=== PATIENT | female | born 1950 | race Caucasian/White ===

== ENCOUNTER → 2018-06-19 15:45 | Outpatient (CLI) | payer MEDICARE, OTHER, SELFPAY ==
--- NOTE | 2018-06-19 15:49 | DI.RAD.S_ITS ---
PROCEDURE: XR CHEST 2V INDICATIONS: COUGH TECHNIQUE: 2 views of the chest were acquired. COMPARISON: [facility], , CHEST 2 VIEW, 05/14/2012, 10:11. FINDINGS: Surgical changes and devices: None. Lungs and pleura: Mildly increased focal vascular marking and bilateral hilar region is seen. No focal infiltrate. No pleural effusions or pneumothorax. Mediastinum: Mediastinal contours are normal. Heart size is normal. Bones and chest wall: No suspicious bony abnormalities. Soft tissues appear unremarkable. IMPRESSION: Suggestion of reactive airway disease such as bronchitis or asthma. No focal infiltrate. Dictated by: Teo Mead M.D. on 06/19/2018 at 16:03 Approved by: Teo Mead M.D. on 06/19/2018 at 16:04
== END ==
PROVIDERS: PCP Physician Assistant; Visit Provider Physician Assistant
DX: R05 Cough (principal)
CPT/HCPCS: 71046

== ENCOUNTER → 2018-07-10 10:56 | Outpatient (CLI) | payer MEDICARE, OTHER, SELFPAY ==
--- NOTE | 2018-07-10 | DI.CT.S_ITS ---
PROCEDURE: CT ABDOMEN PELVIS W CON INDICATIONS: EPIGASTRIC PAIN TECHNIQUE: After the administration of oral and intravenous contrast, 5 mm thick sections acquired from the diaphragms to the symphysis. 5 mm thick coronal and sagittal reformats were performed. For radiation dose reduction, the following was used: automated exposure control, adjustment of mA and/or kV according to patient size. COMPARISON: [facility], CT, ABDOMEN/PELVIS WITH CONTRAST, 12/20/2016, 10:39. [facility], CT, ABDOMEN/PELVIS WITH CONTRAST, 04/02/2010, 14:23. FINDINGS: Image quality: Excellent. ABDOMEN: Lung bases: Lung bases are clear. Heart size is normal. Solid organs: Liver is normal in size and enhancement. Gallbladder appears normal. Biliary system is non-dilated. Pancreas enhances normally. Spleen is normal in size and enhancement. No adrenal nodules. Kidneys are normal in size and enhancement, without hydronephrosis. Peritoneum and bowel: Stomach, small bowel, and colon loops are normal in caliber and wall thickness. No free fluid or air. Moderate colonic obstipation greater on the right than left. Nodes and vessels: No retroperitoneal or mesenteric adenopathy. Aorta and inferior vena cava are normal in caliber. Miscellaneous: No ventral hernias. PELVIS: Genitourinary: Bladder wall thickness is normal. Miscellaneous: No inguinal hernias or adenopathy. Bones: No suspicious bony lesions. No vertebral body compression fractures. IMPRESSION: No sign of infection or neoplasm. Moderate colonic obstipation greater on the right than the left. Dictated by: Art Clement M.D. on 07/10/2018 at 14:03 Approved by: Art Clement M.D. on 07/10/2018 at 14:04
[2018-07-10 12:02] LABS: Add Manual Diff / Slide Review NO; Basophils Absolute Auto 0 /uL (0-100); Basophils Percent Auto 0.9 % (0-2); Eosinophils Absolute Auto 200 /uL (0-450); Eosinophils Percent Auto 5.9 % (2-4); Hematocrit 40.8 % (36-46); Hemoglobin 13.9 g/dL (12.0-16.0); Lymphocytes Absolute Auto 1500 /uL (1100-4500); Lymphocytes Percent Auto 39.9 % (25-40); Mean Corpuscular Hemoglobin 31.1 PG (26-34); Mean Corpuscular Volume 91.4 fL (80-100); Monocytes Absolute Auto 400 /uL (0-900); Monocytes Percent Auto 9.8 % (3-14); Neutrophils Absolute Auto 1600 /uL (1500-7000); Neutrophils Percent Auto 43.5 % (50-75); Platelet Count 168 X10^3/uL (150-400); Red Blood Cell Count 4.47 X10^6/uL (4.0-5.2); Red Cell Distribution Width 13.7 % (11.6-14.8); White Blood Cell Count 3.7 X10^3/uL (4.5-11.0)
[2018-07-10 12:12] LABS: Alanine Aminotransferase 36 IU/L (9-52); Alkaline Phosphatase 118 U/L (38-126); Aspartate Aminotransferase 27 IU/L (14-36); Bilirubin Total 1.6 mg/dL (0.2-1.3); Blood Urea Nitrogen 18 mg/dL (7-17); Carbon Dioxide 29 mmol/L (22-32); Chloride 101 mmol/L (98-107); Estimated Glomerular Filt Rate 55.1 mL/min (>60); Glucose 96 mg/dL (80-110); HEMOLYSIS < 15 (0-50); Lipase 58 U/L (23-300); Potassium 4.2 mmol/L (3.4-5.1); Sodium 138 mmol/L (137-145)
== END ==
PROVIDERS: PCP Physician Assistant; Visit Provider Internal Medicine
DX: R10.13 Epigastric pain (principal); K59.00 Constipation, unspecified
CPT/HCPCS: 36415; 74177; 80048; 82247; 83690; 84075; 84450; 84460; 85025; Q9967

== ENCOUNTER → 2018-11-18 15:07 | Outpatient (CLI) | payer MEDICARE, OTHER, SELFPAY ==
--- NOTE | 2018-11-18 | DI.MG.S_ITS ---
BILATERAL DIGITAL SCREENING MAMMOGRAM 3D/2D WITH CAD: 11/18/2018 CLINICAL: Routine screening. Comparison is made to exams dated: 04/18/2014 mammogram, 03/05/2012 mammogram, 11/14/2010 mammogram, 07/11/2009 mammogram, and 01/18/2008 mammogram - [facility]. There are scattered fibroglandular elements in both breasts. Current study was also evaluated with a Computer Aided Detection (CAD) system. No significant masses, calcifications, or other findings are seen in either breast. There has been no significant interval change. IMPRESSION: NEGATIVE There is no mammographic evidence of malignancy. A 1 year screening mammogram is recommended. This exam was interpreted at Station ID: [id number]. NOTE: For mammograms, a report in lay terms will be sent to the patient. Approximately 15% of breast malignancies will not be visualized mammographically. In the management of a palpable breast mass, a negative mammogram must not discourage biopsy of a clinically suspicious lesion. Electronically Signed By: Dillon gallardo/fartun:11/18/2018 20:04:36 letter sent: Normal Exam ACR BI-RADS Category 1: Negative [id number]
== END ==
PROVIDERS: PCP Physician Assistant; Visit Provider Internal Medicine
DX: Z12.31 Encounter for screening mammogram for malignant neoplasm of breast (principal); Z13.820 Encounter for screening for osteoporosis; Z78.0 Asymptomatic menopausal state; Z82.62 Family history of osteoporosis; Z87.891 Personal history of nicotine dependence
CPT/HCPCS: 77063; 77067; 77080

== ENCOUNTER → 2018-12-04 15:52 | Outpatient (CLI) | payer MEDICARE, OTHER, SELFPAY ==
--- NOTE | 2018-12-04 | DI.RAD.S_ITS ---
PROCEDURE: XR KNEE RT 3V INDICATIONS: Sacrococcygeal Pain, Acute Pain of Right Knee TECHNIQUE: 3 views of the knee were acquired. COMPARISON: [facility], MR, KNEE WITHOUT CONTRAST, 09/16/2013, 8:46. [facility], CR, KNEE 3V RIGHT, 03/02/2009, 10:37. [facility], CR, KNEE 3V LEFT, 09/08/2013, 16:17. FINDINGS: Bones: No fractures or dislocations. No suspicious bony lesions. There is moderate medial femorotibial joint space narrowing seen, with associated remodeling changes including subchondral sclerosis and osteophyte formation along the jointline. On the sunrise view, there is at least moderate lateral patellofemoral joint space narrowing seen. Osteophyte formation can be seen along the margins of the patella. Soft tissues: There is a mild joint effusion. No suspicious soft tissue calcifications. IMPRESSION: Osteoarthritic degenerative changes are seen, particularly affecting the medial femorotibial joint and the lateral patellofemoral joint. Dictated by: Moreno Mota M.D. on 12/04/2018 at 16:34 Approved by: Moreno Mota M.D. on 12/04/2018 at 16:35
--- NOTE | 2018-12-04 | DI.RAD.S_ITS ---
PROCEDURE: XR SACRUM COCCYX MIN 2V INDICATIONS: Sacrococcygeal Pain, Acute Pain of Right Knee TECHNIQUE: 3 views of the sacrum and coccyx acquired. COMPARISON: [facility], CT, ABDOMEN/PELVIS WITH CONTRAST, 12/20/2016, 10:39. [facility], CR, XR LUMBAR SPINE 2-3V, 12/04/2018, 16:02. [facility], CR, XR KNEE RT 3V, 12/04/2018, 16:02. FINDINGS: Bones: No fractures or dislocations. No suspicious bony lesions. Age-appropriate lower lumbar spine degenerative changes are noted. Soft tissues: Visualized bowel gas pattern is normal. No suspicious soft tissue densities. Pelvic phleboliths are incidentally noted. IMPRESSION: No significant abnormality of the sacrum or coccyx cannot be seen. Dictated by: Moreno Mota M.D. on 12/04/2018 at 16:35 Approved by: Moreno Mota M.D. on 12/04/2018 at 16:35
--- NOTE | 2018-12-04 | DI.RAD.S_ITS ---
PROCEDURE: XR LUMBAR SPINE 2-3V INDICATIONS: Sacrococcygeal Pain, Acute Pain of Right Knee TECHNIQUE: 3 views of the lumbar spine were acquired. COMPARISON: [facility], CR, THORACIC SPINE 3 VIEWS, 07/18/2016, 15:38. [facility], CR, XR SACRUM COCCYX MIN 2V, 12/04/2018, 16:02. [facility], CR, XR KNEE RT 3V, 12/04/2018, 16:02. FINDINGS: Bones: Mild dextroconvex scoliotic curvature is seen. No focal AP alignment abnormality is seen. 5 nonrib-bearing, lumbar type vertebral bodies are seen. No displaced fractures are seen. No suspicious lytic or blastic lesions are seen. Moderate disc space narrowing is seen at L5-S1, with associated irregularity and sclerosis. Focal endplate irregularity is seen at L1-L2. The disc heights otherwise appear well-preserved. Lower lumbar spine facet arthropathy is seen. Soft tissues: Overlying bowel gas pattern is normal. No suspicious soft tissue calcifications. IMPRESSION: Mild dextroconvex scoliotic curvature. Focal L5-S1 degenerative change. Dictated by: Moreno Mota M.D. on 12/04/2018 at 16:31 Approved by: Moreno Mota M.D. on 12/04/2018 at 16:33
== END ==
PROVIDERS: PCP Physician Assistant; Visit Provider Physician Assistant
DX: M53.3 Sacrococcygeal disorders, not elsewhere classified (principal); M47.817 Spondylosis without myelopathy or radiculopathy, lumbosacral region; M41.9 Scoliosis, unspecified; M25.561 Pain in right knee; M25.461 Effusion, right knee
CPT/HCPCS: 72100; 72220; 73562

== ENCOUNTER → 2019-03-22 10:15 | Outpatient (CLI) | payer MEDICARE, OTHER, SELFPAY ==
--- NOTE | 2019-03-22 | DI.RAD.S_ITS ---
PROCEDURE: XR CHEST 2V INDICATIONS: COUGH TECHNIQUE: 2 views of the chest were acquired. COMPARISON: [facility], , XR CHEST 2V, 06/19/2018, 15:56. [facility], , CHEST 2 VIEW, 05/14/2012, 10:11. FINDINGS: Surgical changes and devices: None. Lungs and pleura: Lungs are clear. No pleural effusions or pneumothorax. Mediastinum: Mediastinal contours are normal. Heart size is normal. Bones and chest wall: No suspicious bony abnormalities. Soft tissues appear unremarkable. IMPRESSION: Normal for age, source of current cough symptoms is not seen. Dictated by: Art Clement M.D. on 03/22/2019 at 11:13 Approved by: Art Clement M.D. on 03/22/2019 at 11:13
== END ==
PROVIDERS: PCP Physician Assistant; Visit Provider Physician Assistant
DX: R05 Cough (principal)
CPT/HCPCS: 71046

== ENCOUNTER → 2019-06-18 09:05 | Outpatient (CLI) | payer MEDICARE, OTHER, SELFPAY ==
[2019-06-18 13:21] LABS: Clostridium Difficile Tox PCR Negative for C. diff
== END ==
PROVIDERS: PCP Physician Assistant; Referring Provider Physician Assistant; Visit Provider Physician Assistant
DX: R19.7 Diarrhea, unspecified (principal)
CPT/HCPCS: 87045; 87493; 87899

== ENCOUNTER → 2019-08-04 08:25 | Outpatient (CLI) | payer MEDICARE, OTHER, SELFPAY ==
[2019-08-04 09:02] LABS: Add Manual Diff / Slide Review NO; Basophils Absolute Auto 0 /uL (0-100); Basophils Percent Auto 1.1 % (0-2); Eosinophils Absolute Auto 300 /uL (0-450); Eosinophils Percent Auto 8.7 % (2-4); Hematocrit 39.4 % (36-46); Hemoglobin 13.6 g/dL (12.0-16.0); Lymphocytes Absolute Auto 1500 /uL (1100-4500); Lymphocytes Percent Auto 43.4 % (25-40); Mean Corpuscular HGB Conc 34.6 % (30-36); Mean Corpuscular Volume 92.6 fL (80-100); Monocytes Absolute Auto 300 /uL (0-900); Monocytes Percent Auto 7.7 % (3-14); Neutrophils Absolute Auto 1300 /uL (1500-7000); Neutrophils Percent Auto 39.1 % (50-75); Platelet Count 159 X10^3/uL (150-400); Red Blood Cell Count 4.25 X10^6/uL (4.0-5.2); Red Cell Distribution Width 13.5 % (11.6-14.8); White Blood Cell Count 3.4 X10^3/uL (4.5-11.0)
[2019-08-04 09:16] LABS: Alanine Aminotransferase 36 IU/L (<35); Albumin 4.2 g/dL (3.5-5.0); Albumin Globulin Ratio 1.3 (1.0-2.8); Alkaline Phosphatase 61 U/L (38-126); Aspartate Aminotransferase 42 IU/L (14-36); BUN Creatinine Ratio 23.2 (6-22); Bilirubin Total 1.1 mg/dL (0.2-1.3); Blood Urea Nitrogen 22 mg/dL (7-17); Calcium 9.4 mg/dL (8.4-10.2); Carbon Dioxide 25 mmol/L (22-32); Chloride 108 mmol/L (98-107); Estimated Glomerular Filt Rate 58.3 mL/min (>60); Globulin 3.3 g/dL (1.7-4.1); Glucose 93 mg/dL (80-110); HEMOLYSIS < 15 (0-50); Potassium 4.3 mmol/L (3.4-5.1); Sodium 141 mmol/L (137-145); Total Protein 7.5 g/dL (6.3-8.2)
[2019-08-04 09:18] LABS: C-Reactive Protein Quant < 0.5 mg/dL (<1.0)
[2019-08-04 09:49] LABS: Erythrocyte Sedimentation Rate 6 MM/HR (0-20)
[2019-08-06 13:48] LABS: ANA Screen, IFA Negative (.)
== END ==
PROVIDERS: PCP Physician Assistant; Referring Provider Physician Assistant; Visit Provider Physician Assistant
DX: M19.90 Unspecified osteoarthritis, unspecified site (principal); R76.8 Other specified abnormal immunological findings in serum
CPT/HCPCS: 36415; 80053; 85025; 85651; 86038; 86140; 86430

== ENCOUNTER 2020-03-17 10:29 | Emergency (ER) | payer MEDICARE, OTHER, SELFPAY ==
[2020-03-17] VITALS (10 sets, daily range): BP systolic 143–187; BP diastolic 72–90; PULSE 65–106; RESP 16–45; TEMP 36.8; O2SAT 91–99; BMI 23.5
--- NOTE | 2020-03-17 10:47 | DI.RAD.S_ITS ---
PROCEDURE: XR CHEST 1V INDICATIONS: chest pain TECHNIQUE: One view of the chest was acquired. COMPARISON: [facility], , CHEST 2 VIEW, 05/14/2012, 10:11. [facility], , XR CHEST 2V, 06/19/2018, 15:56. [facility], CR, XR CHEST 2V, 03/22/2019, 10:27. FINDINGS: Surgical changes and devices: None. Lungs and pleura: Lungs are clear. No pleural effusions or pneumothorax. Mediastinum: Mediastinal contours appear normal. Heart size is normal. Bones and chest wall: No suspicious bony lesions. Age-appropriate bony degenerative changes are seen. Mild levoconvex scoliotic curvature is noted. Overlying soft tissues appear unremarkable. IMPRESSION: No acute cardiopulmonary process is seen. Dictated by: Moreno Mota M.D. on 03/17/2020 at 10:12 Approved by: Moreno Mota M.D. on 03/17/2020 at 10:13
--- NOTE | 2020-03-17 10:50 | ED.SOB ---
HPI - SOB/Dyspnea General Chief Complaint: Chest Pain Stated Complaint: high heart rate Time Seen by Provider: 03/17/20 10:30 Source: patient Mode of arrival: Ambulatory Limitations: no limitations History of Present Illness HPI Narrative: 69-year-old female nonsmoker without significant medical history presents at the encouragement of her physician friend for evaluation of 3 days of increasing shortness of breath with minimal exertion. She states that walking up a flight of stairs will drive her heart rate up into the 140s of which point she develops anterior chest discomfort and pressure which seems to resolve along with her heart rate when she rests. She denies any fever or chills. She does feel short of breath with a dry cough, particularly when her heart is racing. She has no headache, blurred vision, runny nose or sore throat. She denies any exposure to persons known to have COVID. MD Complaint: shortness of breath and chest pain Onset (ago): day(s) Severity: moderate Consistency/Duration: intermittent Exacerbating factors: exertion Associated symptoms: chest pain and cough Treatment prior to arrival: none Related Data Home oxygen amount: none Home Medications Medication Instructions Recorded Confirmed alprazolam 1 mg PO BEDTIME PRN 03/17/20 03/17/20 valacyclovir 1,000 mg PO TID 03/17/20 03/17/20 Allergies Allergy/AdvReac Type Severity Reaction Status Date / Time No Known Drug Allergies Allergy Verified 03/17/20 10:53 Review of Systems Constitutional Constitutional: Denies chills, Denies fatigue, Denies fever(s), Denies frequent falls, Denies lethargy and Denies weakness Eyes Eyes: Denies change in vision, Denies eye discharge, Denies irritation and Denies loss of vision ENT Ears, Nose, Mouth, and Throat: Denies change in voice, Denies dizziness, Denies neck pain, Denies sore throat and Denies throat swelling Cardiovascular Cardiovascular: Denies chest pain, Denies irregular heart rhythm, Reports lightheadedness, Reports palpitations, Reports dyspnea, Reports dyspnea on exertion and Denies orthopnea Respiratory Respiratory: Denies cough, Reports dyspnea, Reports dyspnea on exertion and Denies wheezing Gastrointestinal Gastrointestinal: Denies abdominal pain, Denies change in bowel habits, Denies diarrhea, Denies nausea and Denies vomiting Musculoskeletal Musculoskeletal: Denies neck pain and Denies numbness Integumentary/Breasts Skin/Breast: Denies pruritus, Denies erythema, Denies rash and Denies wounds Neurologic Neurologic: Denies behavioral changes, Denies confusion, Denies dizziness, Denies frequent falls, Denies loss of vision, Denies numbness and Denies weakness Psychiatric Psychiatric: Denies anxiety, Denies behavioral changes, Denies confusion, Denies depression, Denies homicidal ideation and Denies suicidal ideation Endocrine Endocrine: Denies fatigue, Denies flushing and Reports palpitations Hematologic/Lymphatic Hematologic/Lymphatic: Denies easy bruising Allergic/Immunologic Allergic/Immunologic: Denies urticaria, Denies throat swelling and Denies wheezing Patient History Social History Smoking Status: Never smoker Smoking Status: Never smoker alcohol intake frequency: 0-2 drinks per day Substance Use Type: does not use Exam Narrative Exam Narrative: GENERAL: [69] year old patient appears stated age. Tall, thin, no obvious distress HEAD: Atraumatic. Normocephalic. EYES: Pupils equal round and reactive. Extraocular motions intact. No scleral icterus. No injection or drainage. ENT: Nose without bleeding, purulent drainage. Throat without erythema, tonsillar hypertrophy or exudate. Airway patent. NECK: Trachea midline. Non tender CARDIOVASCULAR: Regular rate and rhythm without murmurs, gallops, or rubs. RESPIRATORY: Clear to auscultation. Breath sounds equal bilaterally. No wheezes, rales, or rhonchi. GASTROINTESTINAL: Abdomen soft, non-tender, nondistended. EXTREMITIES: No edema or joint tenderness. BACK: Nontender without deformity or crepitance. No flank tenderness. NEURO: AOx3. SKIN: No rash or erythema of visible areas Initial Vital Signs Initial Vital Signs: Vital Signs Temperature 98.2 F 03/17/20 10:48 Pulse Rate 106 H 03/17/20 10:48 Respiratory Rate 24 03/17/20 10:48 Blood Pressure 187/90 H 03/17/20 10:48 Pulse Oximetry 98 03/17/20 10:48 Course Orders Ordered: Discontinued Medications Sodium Chloride (Normal Saline 0.9%) 1,000 mls @ 1,000 mls/hr IV BOLUS ONE Stop: 03/17/20 13:04 Last Infusion: 03/17/20 13:17 Dose: 0 mls/hr Documented by: Admin: 03/17/20 12:06 Dose: 1,000 mls/hr Documented by: NICHELLE Vital Signs Vital signs: Vital Signs - 8 hr 03/17/20 10:48 03/17/20 13:14 03/17/20 13:15 Temperature 98.2 F Pulse Rate 106 H 66 65 Pulse Rate [Orthostatic Lying] Pulse Rate [Orthostatic Sitting] Pulse Rate [Orthostatic Standing] Respiratory Rate 24 16 21 Blood Pressure 187/90 H 147/72 H Blood Pressure [Orthostatic Lying] Blood Pressure [Orthostatic Sitting] Blood Pressure [Orthostatic Standing] Pulse Oximetry 98 98 99 03/17/20 13:27 03/17/20 13:28 03/17/20 13:30 Temperature Pulse Rate 73 83 89 Pulse Rate [Orthostatic Lying] Pulse Rate [Orthostatic Sitting] Pulse Rate [Orthostatic Standing] Respiratory Rate 24 21 45 H Blood Pressure 147/73 H 148/81 H Blood Pressure [Orthostatic Lying] Blood Pressure [Orthostatic Sitting] Blood Pressure [Orthostatic Standing] Pulse Oximetry 97 98 91 03/17/20 13:31 03/17/20 13:45 03/17/20 14:00 Temperature Pulse Rate 66 68 Pulse Rate [Orthostatic Lying] 74 Pulse Rate [Orthostatic Sitting] 77 Pulse Rate [Orthostatic Standing] 86 Respiratory Rate 18 21 Blood Pressure Blood Pressure [Orthostatic Lying] 147/73 H Blood Pressure [Orthostatic Sitting] 152/80 H Blood Pressure [Orthostatic Standing] 143/81 H Pulse Oximetry 97 99 MDM - SOB/Dyspnea Lab Data Result diagrams: 03/17/20 10:41 03/17/20 10:41 Labs: Lab Results 03/17/20 03/17/20 03/17/20 Range/Units 10:41 10:41 10:41 WBC 4.5 (4.5-11.0) X10^3/uL RBC 4.26 (4.0-5.2) X10^6/uL Hgb 13.2 (12.0-16.0) g/dL Hct 39.6 (36-46) % MCV 93.1 (80-100) fL MCH 31.0 (26-34) PG MCHC 33.3 (30-36) % RDW 13.0 (11.6-14.8) % Plt Count 203 (150-400) X10^3/uL Neut % (Auto) 38.0 L (50-75) % Lymph % (Auto) 44.5 H (25-40) % Rosebud % (Auto) 10.8 (3-14) % Eos % (Auto) 5.9 H (2-4) % Baso % (Auto) 0.8 (0-2) % Neut # (Auto) 1700 (2572-5337) /uL Lymph # (Auto) 2000 (1966-2662) /uL Rosebud # (Auto) 500 (0-900) /uL Eos # (Auto) 300 (0-450) /uL Baso # (Auto) 0 (0-100) /uL PT 11.1 (10.1-12.7) SECONDS INR 1.0 (0.9-1.3) APTT 31 (26.4-36.2) SECONDS Sodium 137 (137-145) mmol/L Potassium 4.1 (3.4-5.1) mmol/L Chloride 106 (98-107) mmol/L Carbon Dioxide 24 (22-32) mmol/L BUN 23 H (7-17) mg/dL Creatinine 0.90 (0.52-1.04) mg/dL Estimated GFR > 60.0 (>60) mL/min BUN/Creatinine Ratio 25.6 H (6-22) Glucose 101 (80-110) mg/dL Calcium 9.5 (8.4-10.2) mg/dL Total Bilirubin 0.9 (0.2-1.3) mg/dL AST 55 H (14-36) IU/L ALT 73 H (<35) IU/L Alkaline Phosphatase 130 H (38-126) U/L Total Creatine Kinase 39 (30-135) U/L CK-MB (CK-2) TNP CK-MB (CK-2) Rel Index TNP Troponin I < 0.012 (0.01-0.034) ng/mL NT-Pro-B Natriuret Pep (<125) pg/mL Total Protein 8.1 (6.3-8.2) g/dL Albumin 4.4 (3.5-5.0) g/dL Globulin 3.7 (1.7-4.1) g/dL Albumin/Globulin Ratio 1.2 (1.0-2.8) Lipase 77 (23-300) U/L SARS-CoV-2 (PCR) (Negative) 03/17/20 03/17/20 03/17/20 Range/Units 10:41 10:42 13:24 WBC (4.5-11.0) X10^3/uL RBC (4.0-5.2) X10^6/uL Hgb (12.0-16.0) g/dL Hct (36-46) % MCV (80-100) fL MCH (26-34) PG MCHC (30-36) % RDW (11.6-14.8) % Plt Count (150-400) X10^3/uL Neut % (Auto) (50-75) % Lymph % (Auto) (25-40) % Rosebud % (Auto) (3-14) % Eos % (Auto) (2-4) % Baso % (Auto) (0-2) % Neut # (Auto) (9940-7338) /uL Lymph # (Auto) (6921-9805) /uL Rosebud # (Auto) (0-900) /uL Eos # (Auto) (0-450) /uL Baso # (Auto) (0-100) /uL PT (10.1-12.7) SECONDS INR (0.9-1.3) APTT (26.4-36.2) SECONDS Sodium (137-145) mmol/L Potassium (3.4-5.1) mmol/L Chloride (98-107) mmol/L Carbon Dioxide (22-32) mmol/L BUN (7-17) mg/dL Creatinine (0.52-1.04) mg/dL Estimated GFR (>60) mL/min BUN/Creatinine Ratio (6-22) Glucose (80-110) mg/dL Calcium (8.4-10.2) mg/dL Total Bilirubin (0.2-1.3) mg/dL AST (14-36) IU/L ALT (<35) IU/L Alkaline Phosphatase (38-126) U/L Total Creatine Kinase (30-135) U/L CK-MB (CK-2) CK-MB (CK-2) Rel Index Troponin I < 0.012 (0.01-0.034) ng/mL NT-Pro-B Natriuret Pep 40 (<125) pg/mL Total Protein (6.3-8.2) g/dL Albumin (3.5-5.0) g/dL Globulin (1.7-4.1) g/dL Albumin/Globulin Ratio (1.0-2.8) Lipase (23-300) U/L SARS-CoV-2 (PCR) Negative (Negative) Imaging Data Chest x-ray: Attestation: I personally reviewed and interpreted this imaging study as follows: My Impression: NAP Radiologist's Impression: Bret Espinoza 69 F [address] [id number] ReportSigned Patient: Bret Espinoza EMR#: [id number]: 1950cct:[id number]/Sex: 69 / FDate of Service: 03/17/20Loc: EDAccession Number: [id number] Procedure: XR chest 1V Ordering Provider: Akash Hills D.O. PROCEDURE: XR CHEST 1V INDICATIONS: chest pain TECHNIQUE: One view of the chest was acquired. COMPARISON: [facility], CR, CHEST 2 VIEW, 05/14/2012, 10:11. [facility], CR, XR CHEST 2V, 06/19/2018, 15:56. [facility], CR, XR CHEST 2V, 03/22/2019, 10:27. FINDINGS: Surgical changes and devices: None. Lungs and pleura: Lungs are clear. No pleural effusions or pneumothorax. Mediastinum: Mediastinal contours appear normal. Heart size is normal. Bones and chest wall: No suspicious bony lesions. Age-appropriate bony degenerative changes are seen. Mild levoconvex scoliotic curvature is noted. Overlying soft tissues appear unremarkable. IMPRESSION: No acute cardiopulmonary process is seen. Dictated by: Moreno Mota M.D. on 03/17/2020 at 10:12 Approved by: Moreno Mota M.D. on 03/17/2020 at 10:13 CT scan - chest: Radiologist's Impression: [address] [id number] Scan ReportSigned Patient: Bret Espinoza EMR#: [id number]: 1950cct:[id number]/Sex: 69 / FDate of Service: 03/17/20Loc: EDAccession Number: [id number] Procedure: CT angio chest PE protocol Ordering Provider: Akash Hills D.O. PROCEDURE: CT ANGIO CHEST PE PROTOCOL INDICATIONS: chest pain, short of breath TECHNIQUE: After the administration of intravenous contrast, 2 mm thick sections acquired from the pulmonary apices to the posterior costophrenic angles. 3-dimensional maximum intensity projection (MIP) coronal and sagittal reformats were then acquired through the thorax. For radiation dose reduction, the following was used: automated exposure control, adjustment of mA and/or kV according to patient size. COMPARISON: [facility], CT, CT ABDOMEN PELVIS W CON, 07/10/2018, 12:17. [facility], CR, XR CHEST 1V, 03/17/2020, 10:55. FINDINGS: Image quality: Excellent. Pulmonary arteries: Pulmonary arteries are normal in size, and demonstrate no intraluminal filling defects to suggest central pulmonary embolism. Lungs and pleura: Mild dependent atelectasis is seen, right worse than left. No pleural effusions or pneumothorax. Central and peripheral airways are patent. Mediastinum: Heart size is normal, without pericardial effusion. Moderate coronary artery calcification can be seen. No mediastinal or hilar adenopathy. Thoracic aorta is normal in caliber and enhancement. Esophagus is normal in caliber, without hiatal hernia. Bones and chest wall: No suspicious bony lesions. Mild apparent pectus excavatum deformity can be seen. Ribs and thoracic spine appear intact throughout. [id number] levoconvex thoracic scoliotic curvature can be seen. Age-appropriate bony degenerative changes are seen. Thyroid gland demonstrates no significant abnormality. No axillary or supraclavicular adenopathy. Abdomen: Visualized upper abdominal solid organs appear normal in the early arterial phase of enhancement. IMPRESSION: Negative for pulmonary embolism. Incidental note is made of: Moderate coronary artery calcification Mild dependent atelectasis Mild apparent pectus excavatum deformity Levoconvex scoliotic curvature Dictated by: Moreno Mota M.D. on 03/17/2020 at 10:56 Approved by: Moreno Mota M.D. on 03/17/2020 at 10:59 ECG Data Interpretation: Non-ischemic findings. NSR. No ST changes. T wave inversions MDM Narrative Medical decision making narrative: Multiple etiologies for patient's symptoms considered including: Multiple causes of chest pain considered including RI, PE, pneumothorax, pneumonia, aortic dissection, and pleurisy. Patient reports no radiation, no diaphoresis, no provocation with exertion, and no vomiting Patient's symptoms improved over duration of stay with above-stated therapies. Very likely that this is a fluid imbalance, tremendous improvement after hydration. Asymptomatic with ambulation. Findings and discharge diagnosis discussed with patient/family followed by verbalization of understanding Return precautions discussed with patient/family whom verbalize understanding. Discharge Plan Departure Patient Disposition: Home Clinical Impression: Acute dyspnea, Tachycardia, Acute dehydration Instructions: DI for Shortness of Breath Activity Restrictions/Additional Instructions: *You have been diagnosed with [shortness of breath and high heart rate with exertion, likely a consequence of some dehydration. Your labs today and imaging her very reassuring] *What to do: *Take medications as directed *Follow up with your primary care provider in 2-3 days, call for an appointment. Let them know you were seen in the Emergency Department and that we ask that you be seen in follow up *Return to ER if you should have any new, worsening or concerning symptoms Prescriptions: No Action alprazolam 1 mg tablet 1 mg PO BEDTIME PRN (Reason: Insomnia) RF: 0 valacyclovir 1 gram tablet 1,000 mg PO TID RF: 0 Referrals: Daniela Velez PA-C [Primary Care Provider] -
[2020-03-17 10:55] LABS: Add Manual Diff / Slide Review NO; Basophils Absolute Auto 0 /uL (0-100); Basophils Percent Auto 0.8 % (0-2); Eosinophils Absolute Auto 300 /uL (0-450); Eosinophils Percent Auto 5.9 % (2-4); Hematocrit 39.6 % (36-46); Hemoglobin 13.2 g/dL (12.0-16.0); Lymphocytes Absolute Auto 2000 /uL (1100-4500); Lymphocytes Percent Auto 44.5 % (25-40); Mean Corpuscular HGB Conc 33.3 % (30-36); Mean Corpuscular Volume 93.1 fL (80-100); Monocytes Absolute Auto 500 /uL (0-900); Monocytes Percent Auto 10.8 % (3-14); Neutrophils Absolute Auto 1700 /uL (1500-7000); Platelet Count 203 X10^3/uL (150-400); Red Blood Cell Count 4.26 X10^6/uL (4.0-5.2); White Blood Cell Count 4.5 X10^3/uL (4.5-11.0)
[2020-03-17 10:59] LABS: Prothrombin Time 11.1 SECONDS (10.1-12.7)
[2020-03-17 11:02] LABS: PTT Partial Thromboplastin Tim 31 SECONDS (26.4-36.2)
[2020-03-17 11:14] LABS: Alanine Aminotransferase 73 IU/L (<35); Albumin 4.4 g/dL (3.5-5.0); Albumin Globulin Ratio 1.2 (1.0-2.8); Alkaline Phosphatase 130 U/L (38-126); Aspartate Aminotransferase 55 IU/L (14-36); BUN Creatinine Ratio 25.6 (6-22); Bilirubin Total 0.9 mg/dL (0.2-1.3); Blood Urea Nitrogen 23 mg/dL (7-17); Calcium 9.5 mg/dL (8.4-10.2); Carbon Dioxide 24 mmol/L (22-32); Chloride 106 mmol/L (98-107); Creatine Kinase 39 U/L (30-135); Estimated Glomerular Filt Rate > 60.0 mL/min (>60); Globulin 3.7 g/dL (1.7-4.1); Glucose 101 mg/dL (80-110); HEMOLYSIS 18 (0-50); Lipase 77 U/L (23-300); Potassium 4.1 mmol/L (3.4-5.1); Sodium 137 mmol/L (137-145); Total Protein 8.1 g/dL (6.3-8.2)
[2020-03-17 11:25] LABS: Troponin I < 0.012 ng/mL (0.01-0.034)
--- NOTE | 2020-03-17 11:25 | DI.CT.S_ITS ---
PROCEDURE: CT ANGIO CHEST PE PROTOCOL INDICATIONS: chest pain, short of breath TECHNIQUE: After the administration of intravenous contrast, 2 mm thick sections acquired from the pulmonary apices to the posterior costophrenic angles. 3-dimensional maximum intensity projection (MIP) coronal and sagittal reformats were then acquired through the thorax. For radiation dose reduction, the following was used: automated exposure control, adjustment of mA and/or kV according to patient size. COMPARISON: [facility], CT, CT ABDOMEN PELVIS W CON, 07/10/2018, 12:17. [facility], CR, XR CHEST 1V, 03/17/2020, 10:55. FINDINGS: Image quality: Excellent. Pulmonary arteries: Pulmonary arteries are normal in size, and demonstrate no intraluminal filling defects to suggest central pulmonary embolism. Lungs and pleura: Mild dependent atelectasis is seen, right worse than left. No pleural effusions or pneumothorax. Central and peripheral airways are patent. Mediastinum: Heart size is normal, without pericardial effusion. Moderate coronary artery calcification can be seen. No mediastinal or hilar adenopathy. Thoracic aorta is normal in caliber and enhancement. Esophagus is normal in caliber, without hiatal hernia. Bones and chest wall: No suspicious bony lesions. Mild apparent pectus excavatum deformity can be seen. Ribs and thoracic spine appear intact throughout. Kold-jw-hgvgcmgd levoconvex thoracic scoliotic curvature can be seen. Age-appropriate bony degenerative changes are seen. Thyroid gland demonstrates no significant abnormality. No axillary or supraclavicular adenopathy. Abdomen: Visualized upper abdominal solid organs appear normal in the early arterial phase of enhancement. IMPRESSION: Negative for pulmonary embolism. Incidental note is made of: Moderate coronary artery calcification Mild dependent atelectasis Mild apparent pectus excavatum deformity Levoconvex scoliotic curvature Dictated by: Moreno Mota M.D. on 03/17/2020 at 10:56 Approved by: Moreno Mota M.D. on 03/17/2020 at 10:59
[2020-03-17 11:26] LABS: COVID19 -Nasal RAPID Negative (Negative)
[2020-03-17 11:46] LABS: NT-proBNP (BNP-Adult 18+) 40 pg/mL (<125)
[2020-03-17] MEDS: SODIUM CHLORIDE 0.9% 1,000 ML 1000 ML IV (12:06)
--- NOTE | 2020-03-17 13:32 | PC.NURSE ---
Ambulation trial performed per provider request. Patient ambulated around department independently, denied any chest pain or SOB throughout or after ambulation.
[2020-03-17 14:06] LABS: Troponin I < 0.012 ng/mL (0.01-0.034)
[2020-03-21 10:20] LABS: HEMOLYSIS 16 (0-50); Iron 92 ug/dL (37-170)
[2020-03-21 10:36] LABS: Percent Iron Saturation 36 % (15-50); Total Iron Binding Capacity 254 ug/dL (265-497); Transferrin 204 mg/dL (206-381)
[2020-03-21 10:56] LABS: Ferritin 180 ng/mL (11-264)
== END 2020-03-17 14:32 | disposition home or self-care (01) ==
PROVIDERS: Emergency Provider Emergency Medicine; PCP Physician Assistant
DX: R06.00 Dyspnea, unspecified (principal); R00.0 Tachycardia, unspecified; E86.0 Dehydration; R07.9 Chest pain, unspecified; R05 Cough; Z20.828 Contact with and (suspected) exposure to other viral communicable diseases
CPT/HCPCS: 36415; 71045; 71275; 80053; 82550; 82728; 83540; 83550; 83690; 83880; 84484; 85025; 85610; 85730; 87635; 93005; 96360; 99283; 99284; Q9967

== ENCOUNTER → 2020-03-30 09:37 | Outpatient (CLI) | payer MEDICARE, OTHER, SELFPAY ==
--- NOTE | 2020-04-19 10:30 | P.HOLT.S_ITS ---
Clinical Assistant Professor Report Referral & Results Date Patient Seen: 03/30/20 Requesting provider: Daniela Velez Indication: Tachycardia Duration of monitoring (days): 7 Diary information: There were 12 patient triggered events and 9 patient diary entries Patient triggered events were associated with (within 45 seconds) sinus rhythm, PVCs, PACs and brief runs of SVT Patient diary events were also associated with sinus rhythm, PVCs, PACs and SVT as above Data: Minimum heart rate identified was 45 beats per minute at 01:51 on 04/05/2020 Maximum sinus heart rate was 152 beats per minute at 09:58 on 04/02/2020 Maximum overall heart rate was 214 beats per minute at 14:24 on 04/02/2020 during in 19 be run of SVT Patient had 83 runs of SVT the fastest being the 19 be run as noted above the longest lasting 56.1 seconds at a rate of 157 beats per minute. Less than 1% of identified beats or other ventricular supraventricular ectopic in origin Impression: Patient with rare very limited runs of SVT as above. This may be correlated with patient's symptoms, although multiple other dysrhythmias as above were also present during patient triggered events as above Clinical correlation suggested
== END ==
PROVIDERS: PCP Physician Assistant; Referring Provider Physician Assistant; Visit Provider Physician Assistant
DX: R00.0 Tachycardia, unspecified (principal); R06.00 Dyspnea, unspecified
CPT/HCPCS: 93242; 93244

== ENCOUNTER → 2020-04-07 08:00 | Outpatient (CLI) | payer MEDICARE, OTHER, SELFPAY ==
--- NOTE | 2020-04-07 | DI.ECHO.S_ITS ---
[facility] +---------+ [facility] +---------+ : : [address] : [address] [place] : : : : [phone] : : : : Phone: [phone]+ Echocardiogram Report + + :Name: MONTSERRAT BRUNO Study Date: 04/07/2020 Height: 75 in : :[facility] ReadingLocation: Weight: 192 lb : : Gender: Female BSA: 2.2 m2 : :: 1950 Age: 69 yrs BP: 113/75 mmHg: :Reason For Study: Tachycardia : :Ordering Physician: CHELSEA, : :AMY Performed By: Malena Greene : :Referring: AMY TRAN : + + Interpretation Summary Normal left ventricle size with ejection fraction 60-65%. Normal right ventricle and both atria. No valvular abnormality. Mildly enlarged ascending aorta. Procedure: A two-dimensional transthoracic echocardiogram with color flow and Doppler was performed. The study quality was technically adequate. The patient was in sinus bradycardia with heart rates between 47-56 bpm during the exam. Left Ventricle: The left ventricle is normal in size and wall thickness. A false chord is noted (normal variant). The ejection fraction is estimated to be 60-65%. There are no focal wall motion abnormalities. Right Ventricle: The right ventricle is normal in size and function. Atria: The left atrial size is normal. Right atrial size is normal. There is no Doppler evidence for an interatrial shunt. Mitral Valve: The mitral valve is normal in structure and function. There is trace mitral regurgitation. Aortic Valve: The aortic valve is trileaflet. The aortic valve opens well. No aortic regurgitation is present. Tricuspid Valve: The tricuspid valve is normal in structure and function. There is a trace or physiologic amount of tricuspid regurgitation. Pulmonary artery pressures cannot be estimated because of the lack of a measurable TR jet velocity but the IVC suggests a CVP of around 3 mmHg. Pulmonic Valve: The pulmonic valve leaflets are thin and pliable; valve motion is normal. There is a trace or physiologic amount of pulmonic regurgitation. Great Vessels: The aortic root is normal size. The ascending aorta is mildly enlarged. The pulmonary artery is not well visualized, but is probably normal size. The IVC is of normal diameter and collapses greater than 50% with a sniff. This suggests a low right atrial pressure of 3 mm Hg. Pericardium/ Pleura There is no pericardial effusion. MMode/2D Measurements & Calculations LVIDd: 4.7 cm LVOT diam: 2.1 cm LVIDs: 3.2 cm Ao root diam: 3.3 cm FS: 32.4 % asc Aorta Diam: 3.9 cm IVSd: 1.00 cm Ao Arch Diam (distal): 2.5 cm LVPWd: 0.87 cm LV hayes. diameter/BSA (cm/m^2): 2.2 LV sys. diameter/BSA (cm/m^2): 1.5 LA A2 area: 21.3 cm2 RA long axis: 5.2 cm LA A4 area: 18.7 cm2 RA area: 18.0 cm2 LA length (vol): 5.2 cm RA vol: 53.0 ml LA vol: 64.3 ml RA : 24.6 ml/m2 LA vol index: 29.8 ml/m2 IVC diam: 1.5 cm RVD1 (basal): 3.8 cm TAPSE: 2.1 cm Doppler Measurements & Calculations Ao V2 max: 124.4 cm/sec LVOT Max Jovanni: 91.8 cm/sec Ao V2 mean: 87.8 cm/sec LV V1 max P.4 mmHg Ao max P.2 mmHg LV V1 VTI: 25.1 cm Ao mean P.4 mmHg KARUNA(I,D): 3.0 cm2 Ao V2 VTI: 29.2 cm KARUNA(V,D): 2.6 cm2 sev ratio: 0.86 KARUNA indexed to BSA (cm^2/m^2): 1.4 MV E max jovanni: 62.8 cm/sec PA V2 max: 59.8 cm/sec MV A max jovanni: 61.2 cm/sec PA V2 mean: 43.6 cm/sec MV E/A: 1.0 PA mean P.82 mmHg Med Peak E' Jovanni: 7.3 cm/sec PA Accel Time: 0.09 sec E/E' med: 8.6 Lat Peak E' Jovanni: 10.9 cm/sec E/E' lat: 5.7 E/e' average: 7.2 MV dec time: 0.28 sec SV(LVOT): 87.0 ml Electronically signed by: Altagracia Shen on Reading Physician:04/07/2020 10:46 AM
== END ==
PROVIDERS: PCP Physician Assistant; Referring Provider Physician Assistant; Visit Provider Physician Assistant
DX: R00.0 Tachycardia, unspecified (principal); R06.00 Dyspnea, unspecified; I77.89 Other specified disorders of arteries and arterioles
CPT/HCPCS: 93306

== ENCOUNTER → 2020-04-21 17:15 | Outpatient (CLI) | payer MEDICARE, OTHER, SELFPAY ==
--- NOTE | 2020-04-21 17:17 | DI.MG.S_ITS ---
BILATERAL DIGITAL SCREENING MAMMOGRAM 3D/2D WITH CAD: 04/21/2020 CLINICAL: Routine screening. Comparison is made to exams dated: 11/18/2018 mammogram, 04/18/2014 mammogram, and 03/05/2012 mammogram - [facility]. There are scattered fibroglandular elements in both breasts. Current study was also evaluated with a Computer Aided Detection (CAD) system. No significant masses, calcifications, or other findings are seen in either breast. There has been no significant interval change. IMPRESSION: NEGATIVE There is no mammographic evidence of malignancy. A 1 year screening mammogram is recommended. This exam was interpreted at Station ID: [id number]. NOTE: For mammograms, a report in lay terms will be sent to the patient. Approximately 15% of breast malignancies will not be visualized mammographically. In the management of a palpable breast mass, a negative mammogram must not discourage biopsy of a clinically suspicious lesion. Electronically Signed By: Dinh Ron M.D. at/fartun:04/24/2020 07:19:02 letter sent: Normal Exam ACR BI-RADS Category 1: Negative 3341F
== END ==
PROVIDERS: PCP Physician Assistant; Referring Provider Physician Assistant; Visit Provider Physician Assistant
DX: Z12.31 Encounter for screening mammogram for malignant neoplasm of breast (principal)
CPT/HCPCS: 77063; 77067

== ENCOUNTER → 2020-09-21 11:55 | Outpatient (CLI) | payer MEDICARE, OTHER, SELFPAY ==
--- NOTE | 2020-09-21 11:59 | DI.RAD.S_ITS ---
PROCEDURE: XR ANKLE RT MIN 3V INDICATIONS: RT ANKLE PAIN TECHNIQUE: 3 views of the ankle were acquired. COMPARISON: None. FINDINGS: Bones: No fractures or dislocations. Ankle mortise is normally aligned. No suspicious bony lesions. Soft tissues: No tibiotalar joint effusion. Achilles tendon appears normal. Single small metallic surgical clips noted posterior to the lateral malleolus. IMPRESSION: Normal for age, source of current ankle pain symptoms is not seen. Single small surgical clip is noted. Dictated by: Art Clement M.D. on 09/21/2020 at 12:14 Approved by: Art Clement M.D. on 09/21/2020 at 12:16
== END ==
PROVIDERS: PCP Physician Assistant; Referring Provider Physician Assistant; Visit Provider Physician Assistant
DX: M25.571 Pain in right ankle and joints of right foot (principal); G89.29 Other chronic pain
CPT/HCPCS: 73610

== ENCOUNTER → 2021-01-12 11:58 | Outpatient (CLI) | payer MEDICARE, OTHER, SELFPAY ==
--- NOTE | 2021-01-12 12:01 | DI.RAD.S_ITS ---
PROCEDURE: XR KNEE RT 3V INDICATIONS: RT KNEE PAIN TECHNIQUE: 3 views of the knee were acquired. COMPARISON: [facility], , XR KNEE RT 3V, 12/04/2018, 16:02. FINDINGS: Bones: No fractures or dislocations. No suspicious bony lesions. Mild narrowing of the medial femorotibial joint and tricompartmental periarticular osteophyte formation. Soft tissues: No joint effusion. No suspicious soft tissue calcifications. IMPRESSION: Mild tricompartmental knee joint degeneration. Dictated by: Rick Lerner [facility] Interpreted: Khadijah Sanchez MD on 01/12/2021 at 12:48 Transcribed by: MELANIA on 01/12/2021 at 12:48 Approved by: Khadijah Sanchez M.D. on 01/12/2021 at 13:55
== END ==
PROVIDERS: PCP Physician Assistant; Referring Provider Physician Assistant; Visit Provider Physician Assistant
DX: M25.561 Pain in right knee (principal); M17.11 Unilateral primary osteoarthritis, right knee
CPT/HCPCS: 73562

== ENCOUNTER → 2021-12-22 08:48 | Outpatient (CLI) | payer MEDICARE, OTHER, SELFPAY | PROVIDERS: PCP Physician Assistant; Visit Provider Nurse Practitioner Family | DX: N39.0 Urinary tract infection, site not specified (principal) | CPT/HCPCS: 87077; 87086; 87186 ==

== ENCOUNTER → 2022-05-28 08:39 | Outpatient (CLI) | payer MEDICARE, OTHER, SELFPAY ==
[2022-05-28 09:27] LABS: Cholesterol 216 mg/dL (140-199); Glucose 99 mg/dL (80-110); Triglycerides 92 mg/dL (35-150)
[2022-05-28 09:53] LABS: HDL Cholesterol 122 mg/dL (40-60); LDL Cholesterol Calculated 76 mg/dL (<100)
== END ==
PROVIDERS: PCP Internal Medicine; Referring Provider Internal Medicine; Visit Provider Internal Medicine
DX: E78.2 Mixed hyperlipidemia (principal)
CPT/HCPCS: 36415; 80061; 82947

== ENCOUNTER → 2022-06-04 08:08 | Outpatient (CLI) | payer MEDICARE, OTHER, SELFPAY ==
--- NOTE | 2022-06-04 | DI.MG.S_ITS ---
BILATERAL DIGITAL SCREENING MAMMOGRAM 3D/2D WITH CAD: 06/04/2022 CLINICAL: Routine screening. Comparison is made to exams dated: 04/21/2020 mammogram, 11/18/2018 mammogram, and 04/18/2014 mammogram - [facility]. There are scattered areas of fibroglandular density in both breasts (category b / 25%-50% glandular tissue). Current study was also evaluated with a Computer Aided Detection (CAD) system. No significant masses, calcifications, or other findings are seen in either breast. There has been no significant interval change. IMPRESSION: NEGATIVE There is no mammographic evidence of malignancy. A 1 year screening mammogram is recommended. Based on the Tyrer Cuzick model (a risk assessment model) the patient's lifetime risk is 3.5% and her 10 year risk is 2.6%. According to the ACR, ACS, and NCCN guidelines, an annual breast MRI exam along with mammogram is recommended if the patient's lifetime risk is 20% or greater. This exam was interpreted at Station ID: [id number]. NOTE: For mammograms, a report in lay terms will be sent to the patient. Approximately 15% of breast malignancies will not be visualized mammographically. In the management of a palpable breast mass, a negative mammogram must not discourage biopsy of a clinically suspicious lesion. Electronically Signed By: Dinh cullen/fartun:06/04/2022 08:53:03 letter sent: Normal Exam ACR BI-RADS Category 1: Negative 3341F
== END ==
PROVIDERS: PCP Internal Medicine; Referring Provider Internal Medicine; Visit Provider Internal Medicine
DX: Z12.31 Encounter for screening mammogram for malignant neoplasm of breast (principal)
CPT/HCPCS: 77063; 77067

== ENCOUNTER → 2022-08-08 12:52 | Outpatient (CLI) | payer MEDICARE, OTHER, SELFPAY ==
[2022-08-08 14:06] LABS: Add Manual Diff / Slide Review NO; Basophils Absolute Auto 0 /uL (0-100); Basophils Percent Auto 0.7 % (0-2); Eosinophils Absolute Auto 200 /uL (0-450); Eosinophils Percent Auto 4.4 % (2-4); Hematocrit 38.3 % (36-46); Lymphocytes Absolute Auto 1300 /uL (1100-4500); Mean Corpuscular HGB Conc 34.1 % (30-36); Mean Corpuscular Hemoglobin 31.9 PG (26-34); Mean Corpuscular Volume 93.6 fL (80-100); Monocytes Absolute Auto 300 /uL (0-900); Neutrophils Absolute Auto 2800 /uL (1500-7000); Neutrophils Percent Auto 59.9 % (50-75); Platelet Count 188 X10^3/uL (150-400); Red Blood Cell Count 4.09 X10^6/uL (4.0-5.2); Red Cell Distribution Width 13.5 % (11.6-14.8); White Blood Cell Count 4.6 X10^3/uL (4.5-11.0)
[2022-08-08 14:17] LABS: Alanine Aminotransferase 30 IU/L (<35); Albumin 4.2 g/dL (3.5-5.0); Albumin Globulin Ratio 1.4 (1.0-2.8); Alkaline Phosphatase 58 U/L (38-126); Aspartate Aminotransferase 25 IU/L (14-36); BUN Creatinine Ratio 23.6 (6-22); Bilirubin Total 1.1 mg/dL (0.2-1.3); Blood Urea Nitrogen 25 mg/dL (7-17); C-Reactive Protein Quant 0.5 mg/dL (<1.0); Calcium 9.1 mg/dL (8.4-10.2); Carbon Dioxide 28 mmol/L (22-32); Chloride 106 mmol/L (98-107); Estimated Glomerular Filt Rate 56 mL/min (>60); Glucose 121 mg/dL (80-110); HEMOLYSIS < 15 (0-50); Potassium 3.9 mmol/L (3.4-5.1); Sodium 139 mmol/L (137-145); Total Protein 7.2 g/dL (6.3-8.2)
[2022-08-08 14:56] LABS: Appearance Urine UA SL CLOUDY; Bilirubin Urine UA NEGATIVE (NEGATIVE); Color Urine UA YELLOW; Glucose Urine UA NEGATIVE (Negative); Ketones Urine UA NEGATIVE (NEGATIVE); Leukocyte Esterase Urine UA 1+ (NEGATIVE); Nitrite Urine UA NEGATIVE (Negative); Occult Blood Urine UA TRACE-INTACT (Negative); Protein Urine UA 1+ (Negative); Specific Gravity Urine UA >=1.030 (1.000-1.035)
[2022-08-08 15:11] LABS: pH Urine UA 5.5 (4.5-8.0)
[2022-08-08 15:12] LABS: Amorphous Sediment Urine 1+; Bacteria Urine Moderate (10-30); Culture Indicated Urine Specimen Cultured; RBC Urine 1-5/HPF (0-5/HPF); Squamous Epithelial Cell Urine 1-5 /HPF (0-5/HPF); WBC Urine 10-30/HPF (0-5/HPF)
[2022-08-08 16:29] LABS: Erythrocyte Sedimentation Rate 40 MM/HR (0-20)
== END ==
PROVIDERS: PCP Internal Medicine; Referring Provider Internal Medicine Rheumatology; Visit Provider Internal Medicine Rheumatology
DX: M05.79 Rheumatoid arthritis with rheumatoid factor of multiple sites without organ or systems involvement (principal); Z79.899 Other long term (current) drug therapy
CPT/HCPCS: 36415; 80053; 81001; 85025; 85651; 86140; 87086

== ENCOUNTER → 2022-08-13 15:18 | Outpatient (CLI) | payer MEDICARE, OTHER, SELFPAY | PROVIDERS: PCP Internal Medicine; Visit Provider Nurse Practitioner Family | DX: N89.8 Other specified noninflammatory disorders of vagina (principal) | CPT/HCPCS: 87210 ==

== ENCOUNTER → 2022-08-29 16:19 | Outpatient (CLI) | payer MEDICARE, OTHER, SELFPAY ==
[2022-08-29 17:23] LABS: Erythrocyte Sedimentation Rate 7 MM/HR (0-20)
[2022-08-29 17:30] LABS: Bilirubin Urine UA NEGATIVE (NEGATIVE); Color Urine UA YELLOW; Glucose Urine UA NEGATIVE (Negative); Ketones Urine UA NEGATIVE (NEGATIVE); Leukocyte Esterase Urine UA 1+ (NEGATIVE); Nitrite Urine UA NEGATIVE (Negative); Occult Blood Urine UA NEGATIVE (Negative); Protein Urine UA NEGATIVE (Negative); Specific Gravity Urine UA >=1.030 (1.000-1.035); Urobilinogen Urine UA 0.2 E.U./dL (0.2)
[2022-08-29 17:38] LABS: C-Reactive Protein Quant < 0.5 mg/dL (<1.0)
[2022-08-29 17:42] LABS: Appearance Urine UA Slightly Cloudy
[2022-08-29 17:45] LABS: Amorphous Sediment Urine 1+; Bacteria Urine Few (2-10); Culture Indicated Urine Specimen Cultured; Mucus Urine 2+ (Negative); RBC Urine None Seen (0-5/HPF); Squamous Epithelial Cell Urine 5-10 /HPF (0-5/HPF); WBC Urine 5-10/HPF (0-5/HPF)
== END ==
PROVIDERS: PCP Internal Medicine; Referring Provider Internal Medicine Rheumatology; Visit Provider Internal Medicine Rheumatology
DX: M05.79 Rheumatoid arthritis with rheumatoid factor of multiple sites without organ or systems involvement (principal); Z79.899 Other long term (current) drug therapy
CPT/HCPCS: 36415; 81001; 85651; 86140; 87077; 87086; 87186

== ENCOUNTER → 2022-09-12 15:14 | Outpatient (CLI) | payer MEDICARE, OTHER, SELFPAY | PROVIDERS: PCP Internal Medicine; Visit Provider Nurse Practitioner Family | DX: N89.8 Other specified noninflammatory disorders of vagina; R10.2 Pelvic and perineal pain | CPT/HCPCS: 87210 ==

== ENCOUNTER → 2022-09-19 06:40 | Outpatient (CLI) | payer MEDICARE, OTHER, SELFPAY ==
--- NOTE | 2022-09-19 06:41 | DI.US.S_ITS ---
PROCEDURE: US PELVIC COMPLETE INDICATIONS: pelvic pressure with discharge TECHNIQUE: Real-time scanning was performed of the pelvic organs, with image documentation. Additional endovaginal scanning was necessary due to incomplete visualization of the adnexal and endometrial structures by transabdominal scanning. COMPARISON: [facility], CT, CT ABDOMEN PELVIS W CON, 07/10/2018, 12:17. [facility], US, PELVIC COMPLETE, 10/11/2010, 9:02. [facility], , PELVIC COMPLETE, 12/01/2007, 14:43. FINDINGS: Uterus: Uterus is anteverted and normal in size at 7.4 x 3.1 x 4.2 cm. The myometrium is homogeneous. The endometrium measures 8 mm combined thickness and demonstrates heterogeneous echotexture. Ovaries: Ovaries are not visualized. No adnexal mass. Other: No pathologic free abdominal or pelvic fluid. IMPRESSION: 1. Endometrium is thickened for a postmenopausal woman, which demonstrates heterogeneous echotexture. In this patient with clinical symptom of pelvic pressure and vaginal discharge, recommend endometrial sampling. 2. Ovaries are not visualized. No pelvic mass or free fluid. We strive to produce accurate, complete, and clear reports of imaging services. To assist us in improving patient care, this report was composed using standard report templates and voice recognition software. Therefore, it may contain abnormal punctuation, insertions and/or omissions. Occasional wrong-word or sound-alike substitutions may occur. Though we review the report and make efforts to correct it, we do recommend that the report be read carefully in proper context to recognize any text inaccuracies. Dictated by: Khadijah Sanchez M.D. on 09/19/2022 at 8:45 Approved by: Khadijah Sanchez M.D. on 09/19/2022 at 8:50
== END ==
PROVIDERS: PCP Internal Medicine; Referring Provider Nurse Practitioner Family; Visit Provider Nurse Practitioner Family
DX: N89.8 Other specified noninflammatory disorders of vagina (principal); R10.2 Pelvic and perineal pain; R93.89 Abnormal findings on diagnostic imaging of other specified body structures
CPT/HCPCS: 76830; 76856

== ENCOUNTER 2022-10-11 11:30 | Emergency (ER) | payer MEDICARE, OTHER, SELFPAY ==
[2022-10-11 11:37] VITALS: BP 190/102; PULSE 79; RESP 18; TEMP 36.5; O2SAT 99; BMI 23.7
--- NOTE | 2022-10-11 11:43 | ED.NAVMDI ---
HPI - Nausea/Vomiting/Diarrhea General Chief complaint: Nausea/Vomiting/Diarrhea Stated complaint: ABD PAIN, 2 WEEKS DIAREAH Time Seen by Provider: 10/11/22 11:42 Source: patient Mode of arrival: Ambulatory History of Present Illness HPI Narrative: 72-year-old female former smoker with history of diverticulitis presents for evaluation of about 2 weeks of frequent abdominal cramping and loose stools. She states it started about a day after eating some [place] carry out. She only recently started becoming a bit dizzy upon standing but denies other systemic complaints such as fever or chills. She developed crampy abdominal discomfort that seems to intensify until she has a bowel movement at which point it improves for a bit. She denies any recent antibiotics or international travel. Related Data Home Medications Medication Instructions Recorded Confirmed hydroxychloroquine 200 mg tablet 200 mg PO BID 05/27/22 09/23/22 hyoscyamine 0.15 mg tablet 0.15 mg PO DAILY PRN 05/27/22 09/23/22 valacyclovir 1 gram tablet 1,000 mg PO DAILY PRN shingles 05/27/22 09/23/22 breakout Previous Rx's Medication Instructions Recorded rosuvastatin 10 mg tablet 10 mg PO DAILY #90 tabs 05/29/22 terbinafine HCl 250 mg tablet 250 mg PO DAILY #3 tabs 08/09/22 estradiol 0.01% (0.1 mg/gram) 1 g vaginal 2XW #42.5 grams 08/13/22 vaginal cream ciprofloxacin HCl 500 mg tablet 500 mg PO BID #10 tabs 10/11/22 Allergies Allergy/AdvReac Type Severity Reaction Status Date / Time No Known Drug Allergies Allergy Verified 10/11/22 11:41 Review of Systems Review of Systems Narrative: GENERAL: See HPI HEENT: Denies sinus pain, ear pain, sore throat, difficulty swallowing, dizziness. RESPIRATORY: Denies dyspnea, cough, wheezing, hemoptysis, sputum. CARDIOVASCULAR: Denies chest pain, palpitations, orthopnea, edema, GASTROINTESTINAL: See HPI : Denies dysuria, frequency, incontinence, hematuria, urinary retention. MUSCULOSKELETAL: denies weakness, joint pain, or bony pain SKIN: Denies rash, skin lesions, or other NEUROLOGIC: Denies weakness, headache, numbness, change in speech, confusion, seizures, incoordination. PSYCHIATRIC: No concerning psychosocial issues. 12 point review of systems is negative except for those stated above Patient History Medical History Allergic rhinitis Alopecia Anemia (~1973) Chicken pox Chronic back pain Chronic insomnia Diverticular disease (~1994) Eczema Hearing loss Hemorrhoid Hepatitis B Herpes (~1969) History of colonic polyps Lupus Medicare annual wellness visit, initial Mumps Ocular migraine Ovarian cyst (~1997) Polyneuropathy, unspecified Positive PPD Psoriasis Rheumatoid arthritis Rosacea Rubella SVT (supraventricular tachycardia) Tinnitus Vertigo Surgical History Anesthesia History of bowel resection (~2008) Hx of removal of ovary Status post fusion of wrist (~2010) Family History Mother History of heart disease Hyperlipidemia Hypertension Stroke Sister Mental health problem Sister Pneumonitis Family/Other WPW (Ofzpt-Jbppxdrhz-Kdzwq syndrome) Crohn's disease Autoimmune sclerosing pancreatitis Diabetes mellitus Social History Smoking Status: Former smoker Smoking Status: Former smoker alcohol intake frequency: 0-2 drinks per day Substance Use Type: does not use Exam Narrative Exam Narrative: GENERAL: [72] year old patient appears stated age. Well-developed patient, in mild distress. HEAD: Atraumatic. Normocephalic. EYES: Pupils equal round and reactive. Extraocular motions intact. No scleral icterus. No injection or drainage. ENT: Nose without bleeding, purulent drainage. Throat without erythema, tonsillar hypertrophy or exudate. Airway patent. NECK: Trachea midline. Non tender CARDIOVASCULAR: Regular rate and rhythm without murmurs, gallops, or rubs. RESPIRATORY: Clear to auscultation. Breath sounds equal bilaterally. No wheezes, rales, or rhonchi. GASTROINTESTINAL: Abdomen soft, non-tender, nondistended. EXTREMITIES: No edema or joint tenderness. BACK: Nontender without deformity or crepitance. No flank tenderness. NEURO: AOx3. SKIN: No rash or erythema of visible areas Initial Vital Signs Initial Vital Signs: Vital Signs Temperature 97.7 F 10/11/22 11:37 Pulse Rate 79 10/11/22 11:37 Respiratory Rate 18 10/11/22 11:37 Blood Pressure 190/102 H 10/11/22 11:37 Pulse Oximetry 99 10/11/22 11:37 Oxygen Delivery Method Room Air 10/11/22 11:37 Course Orders Ordered: Discontinued Medications Sodium Chloride (Normal Saline 0.9%) 1,000 mls @ 1,000 mls/hr IV BOLUS ONE Stop: 10/11/22 12:41 Last Infusion: 10/11/22 13:16 Dose: 0 mls/hr Documented By: Admin: 10/11/22 12:27 Dose: 1,000 mls/hr Documented By: Vital Signs Vital signs: Vital Signs - 8 hr 10/11/22 11:37 Temperature 97.7 F Pulse Rate 79 Respiratory Rate 18 Blood Pressure 190/102 H Pulse Oximetry 99 Oxygen Delivery Method Room Air MDM - Nausea/Vomiting/Diarrhea Lab Data 10/11/22 11:50 10/11/22 11:50 Labs: Lab Results 10/11/22 10/11/22 10/11/22 Range/Units 11:50 11:50 11:50 WBC 4.6 (4.5-11.0) X10^3/uL RBC 4.10 (4.0-5.2) X10^6/uL Hgb 12.9 (12.0-16.0) g/dL Hct 37.9 (36-46) % MCV 92.5 (80-100) fL MCH 31.5 (26-34) PG MCHC 34.0 (30-36) % RDW 13.3 (11.6-14.8) % Plt Count 182 (150-400) X10^3/uL Neut % (Auto) 54.9 (50-75) % Lymph % (Auto) 30.3 (25-40) % Faulk % (Auto) 7.9 (3-14) % Eos % (Auto) 5.9 H (2-4) % Baso % (Auto) 1.0 (0-2) % Neut # (Auto) 2500 (3529-1306) /uL Lymph # (Auto) 1400 (4761-0950) /uL Faulk # (Auto) 400 (0-900) /uL Eos # (Auto) 300 (0-450) /uL Baso # (Auto) 0 (0-100) /uL Sodium 137 (137-145) mmol/L Potassium 3.9 (3.4-5.1) mmol/L Chloride 106 (98-107) mmol/L Carbon Dioxide 25 (22-32) mmol/L BUN 19 H (7-17) mg/dL Creatinine 0.81 (0.52-1.04) mg/dL Estimated GFR > 60 (>60) mL/min BUN/Creatinine Ratio 23.5 H (6-22) Glucose 100 (80-110) mg/dL Calcium 9.0 (8.4-10.2) mg/dL Magnesium 1.9 (1.6-2.3) mg/dL Total Bilirubin 1.5 H (0.2-1.3) mg/dL AST 23 (14-36) IU/L ALT 23 (<35) IU/L Alkaline Phosphatase 85 (38-126) U/L Total Protein 7.3 (6.3-8.2) g/dL Albumin 4.1 (3.5-5.0) g/dL Globulin 3.2 (1.7-4.1) g/dL Albumin/Globulin Ratio 1.3 (1.0-2.8) Urine RBC (0-5/HPF) Urine WBC (0-5/HPF) Ur Squamous Epith Cells (0-5/HPF) Urine Bacteria (None) Ur Culture Indicated? Stl C. cayetanensis PCR Not detected (Not Detect) Stool Rotavirus (PCR) Not detected (Not Detect) Stool Adenovirus (PCR) Not detected (Not Detect) Stool Astrovirus (PCR) Not detected (Not Detect) Stool Cryptosporidium PCR Not detected (Not Detect) Stl E.coli Shiga Tox PCR Not detected (Not Detect) St Sh/Enteroin Ecoli PCR Not detected (Not Detect) Stool E coli O157 PCR Not Reportable Stl Enterotoxigenic E PCR Not detected (Not Detect) Stool EPEC (PCR) Detected H (Not Detect) Stl E. histolytica PCR Not detected (Not Detect) Stool Giardia Lamblia PCR Not detected (Not Detect) Stool Sapovirus (PCR) Not detected (Not Detect) Stl P. shigelloides PCR Not detected (Not Detect) St Y.enterocolitica PCR Not detected (Not Detect) Stool Vibrio (PCR) Not detected (Not Detect) Stl Vibrio cholerae PCR Not detected (Not Detect) Stl Enteroaggr Ecoli PCR Not detected (Not Detect) Stl Norovirus GI/GII PCR Not detected (Not Detect) Campylobacter (PCR) Not detected (Not Detect) C. difficile Tox (PCR) Not detected (Not Detect) Salmonella (PCR) Not detected (Not Detect) 10/11/22 Range/Units 13:15 WBC (4.5-11.0) X10^3/uL RBC (4.0-5.2) X10^6/uL Hgb (12.0-16.0) g/dL Hct (36-46) % MCV (80-100) fL MCH (26-34) PG MCHC (30-36) % RDW (11.6-14.8) % Plt Count (150-400) X10^3/uL Neut % (Auto) (50-75) % Lymph % (Auto) (25-40) % Faulk % (Auto) (3-14) % Eos % (Auto) (2-4) % Baso % (Auto) (0-2) % Neut # (Auto) (5286-2654) /uL Lymph # (Auto) (5523-7003) /uL Faulk # (Auto) (0-900) /uL Eos # (Auto) (0-450) /uL Baso # (Auto) (0-100) /uL Sodium (137-145) mmol/L Potassium (3.4-5.1) mmol/L Chloride (98-107) mmol/L Carbon Dioxide (22-32) mmol/L BUN (7-17) mg/dL Creatinine (0.52-1.04) mg/dL Estimated GFR (>60) mL/min BUN/Creatinine Ratio (6-22) Glucose (80-110) mg/dL Calcium (8.4-10.2) mg/dL Magnesium (1.6-2.3) mg/dL Total Bilirubin (0.2-1.3) mg/dL AST (14-36) IU/L ALT (<35) IU/L Alkaline Phosphatase (38-126) U/L Total Protein (6.3-8.2) g/dL Albumin (3.5-5.0) g/dL Globulin (1.7-4.1) g/dL Albumin/Globulin Ratio (1.0-2.8) Urine RBC 1-5/hpf (0-5/HPF) Urine WBC 5-10/hpf H (0-5/HPF) Ur Squamous Epith Cells 0-1 /hpf (0-5/HPF) Urine Bacteria Few (2-10) H (None) Ur Culture Indicated? Specimen cultured Stl C. cayetanensis PCR (Not Detect) Stool Rotavirus (PCR) (Not Detect) Stool Adenovirus (PCR) (Not Detect) Stool Astrovirus (PCR) (Not Detect) Stool Cryptosporidium PCR (Not Detect) Stl E.coli Shiga Tox PCR (Not Detect) St Sh/Enteroin Ecoli PCR (Not Detect) Stool E coli O157 PCR Stl Enterotoxigenic E PCR (Not Detect) Stool EPEC (PCR) (Not Detect) Stl E. histolytica PCR (Not Detect) Stool Giardia Lamblia PCR (Not Detect) Stool Sapovirus (PCR) (Not Detect) Stl P. shigelloides PCR (Not Detect) St Y.enterocolitica PCR (Not Detect) Stool Vibrio (PCR) (Not Detect) Stl Vibrio cholerae PCR (Not Detect) Stl Enteroaggr Ecoli PCR (Not Detect) Stl Norovirus GI/GII PCR (Not Detect) Campylobacter (PCR) (Not Detect) C. difficile Tox (PCR) (Not Detect) Salmonella (PCR) (Not Detect) Urine Dip Bedside Urine Glucose Negative Bedside Urine Bilirubin - Negative Bedside Urine Ketone - Negative Urine Specific [place] 1.025 Bedside Urine Occult Blood + Bedside Urine pH 5.5 Bedside Urine Protein - Negative Bedside Urine Urobilinogen - Negative Bedside Urine Nitrite - Negative Bedside Urine Leukocytes + 70 Esterase MDM Narrative Medical decision making narrative: CC: 72-year-old female with frequent diarrhea Complicating co-morbidities: Age, history of diverticulitis Data collected from: Patient Medical records reviewed: Prior notes reviewed in our EMR Differential considered, but not limited to: Viral versus bacterial diarrhea versus food related versus C diff versus other Exam documented above, pertinent findings include: Heart rate regular, lungs clear, abdomen soft and perhaps minimally tender, bowel sounds present in all 4 quadrants Lab Test results independently reviewed as above. Pertinent findings: no leukocytosis or evidence of anemia. Electrolytes and renal function within normal. Urine shows signs of UTI and stool demonstrates evidence of EPEC Discussion: 72-year-old female with a few weeks of profuse watery diarrhea last much in the way of systemic complaints. Hemodynamically stable with reassuring labs. She does have evidence E coli and given the duration of her symptoms we discussed the utility of treatment with antibiotics which seemed to be an easy choice given the presence of a UTI as well. For this reason we chose Cipro over azithromycin for its dual coverage. Patient given return precautions and questions answered to her apparent satisfaction Disposition: see below, along with detailed discharge instructions that have been reviewed with patient as well as indications for ED re-evaluation and additional outpatient follow up Discharge Plan Departure Patient Disposition: Home Clinical Impression: Acute infectious diarrhea, Acute UTI Instructions: Diarrhea, DI for Urinary Tract Infection (UTI) Activity Restrictions/Additional Instructions: *You have been diagnosed with [infectious diarrhea and urinary tract infection] *What to do: *Please continue to take your regular medications as directed. [ x] New medication prescriptions sent to your pharmacy: [[facility] ] [ ] New medication written as a paper prescription [ ] No new medications given *Please follow up with your primary care provider in 2-3 days, call for an appointment. Let them know you were seen in the Emergency Department and that we ask that you be seen in follow up. We will electronically transmit a record of today's note if your PCP is in our system *If you do not have a primary care provider please contact the [facility] Resource line at [phone]. They will ask some questions about your medical history and help get you set up with a doctor in the community. *Return to Emergency Department if you should have any new, worsening or concerning symptoms, such as [fever greater than 101 F, shaking chills, worsening pain, persistent vomiting or other bothersome symptoms] Prescriptions: New ciprofloxacin HCl 500 mg tablet 500 mg PO BID Qty: 10 0RF No Action rosuvastatin 10 mg tablet 10 mg PO DAILY Qty: 90 3RF hydroxychloroquine 200 mg tablet 200 mg PO BID valacyclovir 1 gram tablet 1,000 mg PO DAILY PRN (Reason: shingles breakout) hyoscyamine 0.15 mg tablet 0.15 mg PO DAILY PRN estradiol 0.01 % (0.1 mg/gram) cream 1 g vaginal 2XW Qty: 42.5 0RF Rx Instructions: use pea sized amount to external vagina twice per week terbinafine HCl 250 mg tablet 250 mg PO DAILY Qty: 3 1RF Referrals: Damon Alvarenga MD [Primary Care Provider] - Stand Alone Forms: Patient Portal/API
[2022-10-11 12:27] LABS: Add Manual Diff / Slide Review NO; Basophils Absolute Auto 0 /uL (0-100); Eosinophils Absolute Auto 300 /uL (0-450); Eosinophils Percent Auto 5.9 % (2-4); Hematocrit 37.9 % (36-46); Hemoglobin 12.9 g/dL (12.0-16.0); Lymphocytes Absolute Auto 1400 /uL (1100-4500); Lymphocytes Percent Auto 30.3 % (25-40); Mean Corpuscular Hemoglobin 31.5 PG (26-34); Mean Corpuscular Volume 92.5 fL (80-100); Monocytes Absolute Auto 400 /uL (0-900); Monocytes Percent Auto 7.9 % (3-14); Neutrophils Absolute Auto 2500 /uL (1500-7000); Neutrophils Percent Auto 54.9 % (50-75); Platelet Count 182 X10^3/uL (150-400); Red Cell Distribution Width 13.3 % (11.6-14.8); White Blood Cell Count 4.6 X10^3/uL (4.5-11.0)
[2022-10-11] MEDS: SODIUM CHLORIDE 0.9% 1,000 ML 1000 ML IV (12:27)
[2022-10-11 12:41] LABS: Alanine Aminotransferase 23 IU/L (<35); Albumin 4.1 g/dL (3.5-5.0); Albumin Globulin Ratio 1.3 (1.0-2.8); Alkaline Phosphatase 85 U/L (38-126); Aspartate Aminotransferase 23 IU/L (14-36); BUN Creatinine Ratio 23.5 (6-22); Bilirubin Total 1.5 mg/dL (0.2-1.3); Blood Urea Nitrogen 19 mg/dL (7-17); Carbon Dioxide 25 mmol/L (22-32); Chloride 106 mmol/L (98-107); Estimated Glomerular Filt Rate > 60 mL/min (>60); Globulin 3.2 g/dL (1.7-4.1); Glucose 100 mg/dL (80-110); HEMOLYSIS 23 (0-50); Magnesium 1.9 mg/dL (1.6-2.3); Potassium 3.9 mmol/L (3.4-5.1); Sodium 137 mmol/L (137-145); Total Protein 7.3 g/dL (6.3-8.2)
[2022-10-11 13:25] LABS: Campylobacter Not Detected (Not Detect); Clostridium difficile toxin AB Not Detected (Not Detect); Enteroaggregative E.coli Not Detected (Not Detect); Enterotoxigenic E.coli It/st Not Detected (Not Detect); Plesiomonsa shigelloides Not Detected (Not Detect); Salmonella Not Detected (Not Detect); Shiga-like toxin-prod E.coli Not Detected (Not Detect); Vibrio Not Detected (Not Detect); Vibrio cholerae Not Detected (Not Detect); Yersinia enterocolitica Not Detected (Not Detect)
[2022-10-11 13:26] LABS: Adenovirus F 40/41 Not Detected (Not Detect); Astrovirus Not Detected (Not Detect); Cryptosporidium Not Detected (Not Detect); Cyclospora cayetanensis Not Detected (Not Detect); Entamoeba histolytica Not Detected (Not Detect); Enteropathogenic E.coli Detected (Not Detect); Giardia lamblia Not Detected (Not Detect); Norovirus GI/GII Not Detected (Not Detect); Rotavirus A Not Detected (Not Detect); Sapovirus Not Detected (Not Detect); Shigella/Enteroinvasive E.coli Not Detected (Not Detect)
[2022-10-11 13:35] LABS: RBC Urine 1-5/HPF (0-5/HPF)
[2022-10-11 13:36] LABS: Bacteria Urine Few (2-10); Culture Indicated Urine Specimen Cultured; Squamous Epithelial Cell Urine 0-1 /HPF (0-5/HPF); WBC Urine 5-10/HPF (0-5/HPF)
[2022-10-11 13:57] VITALS: BP 158/70; PULSE 76; RESP 17; O2SAT 99
== END 2022-10-11 13:59 | disposition home or self-care (01) ==
PROVIDERS: Nurse Practitioner Critical Care Medicine; Emergency Provider Emergency Medicine; PCP Internal Medicine
DX: A04.0 Enteropathogenic Escherichia coli infection (principal); N39.0 Urinary tract infection, site not specified
CPT/HCPCS: 36415; 80053; 81003; 81015; 83735; 85025; 87086; 87507; 96360; 99284

== ENCOUNTER → 2022-10-17 16:13 | Outpatient (CLI) | payer MEDICARE, OTHER, SELFPAY ==
[2022-10-19 17:25] LABS: C difficie Toxins A and B, EIA Negative (Negative)
== END ==
PROVIDERS: PCP Internal Medicine; Referring Provider Internal Medicine; Visit Provider Internal Medicine
DX: A09 Infectious gastroenteritis and colitis, unspecified (principal)
CPT/HCPCS: 87324

== ENCOUNTER → 2022-10-25 11:18 | Outpatient (CLI) | payer MEDICARE, OTHER, SELFPAY | PROVIDERS: PCP Internal Medicine; Referring Provider Internal Medicine; Visit Provider Internal Medicine | DX: A09 Infectious gastroenteritis and colitis, unspecified (principal) | CPT/HCPCS: 87045; 87899 ==

== ENCOUNTER 2022-11-01 09:30 | Day surgery (SDC) | payer MEDICARE, OTHER, SELFPAY ==
[2022-10-21 14:04] VITALS: BMI 23.8
--- NOTE | 2022-11-01 | PATH_ITS ---
[facility] Accession Number: [id number] No. of containers..02 Tissue . 01 Material submitted: . PART A: vulva - VULVAR BIOPSY PART B: endometrium - ENDOMETRIAL BIOPSY AND CURETTINGS . 01 Diagnosis: A. Vulva, Biopsy: Lichen sclerosus et atrophicus. Negative for dysplasia and malignancy. . B. Endometrium, Biopsy And Curettage: Polypoid fragments of weakly and non-proliferative endometrium. Fragments of myometrium with features suggestive of adenomyosis. Polypoid fragments of upper benign endocervical mucosa. No evidence of endometrioid intraepithelial neoplasia, glandular dysplasia, or malignancy. [facility] 11/14/2022 1506 Local . 01 Comment: Dr. Brigitte Glasgow reviewed this case and concurs with the diagnosis. . 01 Electronically signed: Radha Gutierres MD, Pathologist NPI- [id number] . 01 Gross description: . Part A: VULVAR BIOPSY: Received in formalin is 1 fragment of meyer soft tissue measuring 0.5 x 0.2 x 0.2 cm. Tissue is inked. Specimen is submitted in its entirety in 1 cassette. Part B: ENDOMETRIAL BIOPSY AND CURETTINGS: Received in formalin are minute fragments of mucoid and hemorrhagic material measuring 0.6 x 0.6 x 0.2 cm in aggregate. Submitted in toto in 1 cassette. /MARIAM 11/06/2022 0059 Local . 01 Pathologist provided ICD-10: N95.0, N84.0, L90.0 . 01 CPT . 591096, 691521 Specimen Comment: A courtesy copy of this report has been sent to [phone] Performed at: 01 [facility] [address] [place] [address] [id number] MD Serg Dominique MD Phone: [phone]
[2022-11-01 09:55] VITALS: BP 133/75; PULSE 53; RESP 16; TEMP 36.3; O2SAT 98; BMI 23.8
[2022-11-01] MEDS: LACTATED RINGERS 1,000 ML 42 ML IV (10:01)
--- NOTE | 2022-11-01 10:42 | PM.PREOP ---
Pre-operative Note COVID-19 Criteria for continued procedure: Expected advancement of disease process Interval Note History & Physical reviewed/Exam performed by Physician: Yes Changes to H&P: No
--- NOTE | 2022-11-01 10:59 | PM.GYNHP.1 ---
History of Present Illness History of Present Illness Reason for admission: vaginal bleeding and other (Vulvar lesion) Narrative: Bret Espinoza is a 72 year old female here for hysteroscopy D&C for postmenopausal bleeding and biopsy of vulvar lesion [facility] Medical History (Updated 11/01/22 @ 11:02 by Ny Goyal MD) Allergic rhinitis Alopecia Anemia (~1973) Chicken pox Chronic back pain Chronic insomnia Diverticular disease (~1994) Eczema Hearing loss Hemorrhoid Hepatitis B Herpes (~1969) History of colonic polyps Lupus Mumps Ocular migraine Ovarian cyst (~1997) Polyneuropathy, unspecified Positive PPD Psoriasis Rheumatoid arthritis Rosacea Rubella SVT (supraventricular tachycardia) Tinnitus Vertigo Surgical History Anesthesia History of bowel resection (~2008) Hx of removal of ovary Status post fusion of wrist (~2010) Family History Mother History of heart disease Hyperlipidemia Hypertension Stroke Sister Mental health problem Sister Pneumonitis Family/Other WPW (Qxucp-Jasssnxvk-Riybd syndrome) Crohn's disease Autoimmune sclerosing pancreatitis Diabetes mellitus Social History household members: spouse Smoking Status: Former smoker alcohol intake: current Meds Home Medications and Allergies Home Medications Medication Instructions Recorded Confirmed Type hydroxychloroquine 200 mg tablet 200 mg PO BID 05/27/22 11/01/22 History hyoscyamine 0.15 mg tablet 0.15 mg PO DAILY 05/27/22 11/01/22 History valacyclovir 1 gram tablet 1,000 mg PO DAILY PRN shingles 05/27/22 11/01/22 History breakout rosuvastatin 10 mg tablet 10 mg PO DAILY #90 tabs 05/29/22 11/01/22 Rx estradiol 0.01% (0.1 mg/gram) 1 g vaginal 2XW #42.5 grams 08/13/22 10/17/22 Rx vaginal cream Allergies Allergy/AdvReac Type Severity Reaction Status Date / Time No Known Drug Allergies Allergy Verified 11/01/22 09:52 Review of Systems Review of Systems ROS: Yes All systems reviewed with the patient and are negative except as otherwise documented Exam Vital Signs (past 8 hours): - 11/01/22 09:55 Temperature 97.4 F L Pulse Rate 53 L Respiratory Rate 16 Blood Pressure 133/75 Pulse Oximetry 98 Oxygen Delivery Method Room Air Oxygen Delivery Method Room Air Narrative Exam Narrative: Preoperative diagnosis: Postmenopausal bleeding and abnormal lesion of vulva suggestive of lichen sclerosis. Planned procedure: Hysteroscopy D&C with biopsy of vulva. History of present illness: Patient is a 72-year-old para 4 who was evaluated by her primary care physician for a year of intermittent thick, yellow discharge sometimes sticky.? She felt like she was getting ?tiny cuts? after she would ride her bicycle or sometimes just with wiping after using the restroom.? She did try eaoh-kaw-ekqtfct yeast cream which seemed to help somewhat initially but always would return.? The patient had 2 tests for yeast and Trichomonas which were both negative.? The patient was started on the small amount of topical estrogen to her vaginal opening 3 times a week.? Patient notice that her discharge was changing to sometimes green and sometimes brown in appearance.? Patient then began to notice some discomfort in her pelvis.? Some twinges of pain suprapubically. Patient had a ultrasound performed on 09/19/2022 that showed a normal appearing uterus but an endometrium that measured 8 mm with heterogeneous echotexture.? Ovaries are not visualized.? No free fluid in the pelvis. On physical exam: HEENT exam within normal limits. Lungs are clear to auscultation percussion. Heart is regular rate and rhythm no S3-S4 murmurs. No thyromegaly. Abdomen is soft, nontender, with no palpable organomegaly The patient's external genitalia shows white epithelium in the keyhole fashion involving her labia and perirectal area. Discussed concerns for possible postmenopausal bleeding with slightly thickened endometrium on ultrasound.? Offered office versus operating room endometrial biopsy.? Pros and cons discussed with the office biopsy being only 92% accurate verses 100% accurate.? Patient decided she would like to proceed with hysteroscopy D&C.? Discussed the possibility she also has lichen sclerosis.? Her daughter had lichen sclerosis has a child.? Discussed treatment for lichen sclerosus would be steroids but that starting treatment prior to biopsy would make the biopsy less accurate.? Offered office verses biopsy in the operating room.? Patient would like to wait to do the biopsy in the operating room as long as the procedure can be performed sooner rather than later.? Patient can use her estrogen cream daily until the procedures performed. Handout on hysteroscopy was given to the patient.? The consent form for hysteroscopy with biopsy of vulva reviewed with the patient.? Consent form signed and questions answered.? Risks of the procedure very minimal including reaction to medication or anesthesia, infection, bleeding, perforation of the uterus that could result in damage to internal structures that may require additional surgery.? Patient understands if she has cancer precancer cells she will need referral for hysterectomy with lymph node biopsy. Assessment & Plan Assessment and plan (1) Postmenopausal bleeding: Status: Acute (2) Endometrial thickening on ultrasound: Status: Acute (3) Vulvar lesion: Status: Acute Assessment & Plan narrative: Hysteroscopy D&C with biopsy of vulva. Treatment and follow-up based on biopsy results.
--- NOTE | 2022-11-01 11:28 | SUR.OPER ---
Lithotomy on padded OR bed, head on pillow, arms secured on padded arm boards at <90 degrees abduction. Legs secured in padded yellow fins stirrups.
[2022-11-01 11:49] VITALS: BP 132/67; PULSE 67; RESP 13; TEMP 36.4; O2SAT 97
--- NOTE | 2022-11-01 11:51 | PM.OP.1 ---
Operative Date/Time/Diagnoses Date of procedure: 11/01/22 Time of procedure: 11:52 Pre-op diagnosis: Postmenopausal bleeding and vulvar lesion consistent with lichen sclerosis Post-op diagnosis: same Procedure & Clinicians Procedure: Hysteroscopy D&C with resection of intracavitary masses likely fibroid and polyps, vulvar biopsy Same procedure as scheduled: Yes Surgeon: Ny Goyal Click Yes if Unassisted: Yes Anesthesia Type: General Operative Notes Findings: Endometrial masses, likely fibroids and polyps. Vulvar jenkins hole shape white thin tissue likely lichen sclerosis Closure Type: not applicable Specimen(s): other (Vulvar biopsy, hysteroscopy D&C with removal of intracavitary masses) Estimated Blood Loss (mL): 5 Blood products transfused: none Procedure in detail: The patient was brought to the operating room where she underwent general anesthesia. She was placed in low stirrups She was prepped and draped in usual sterile fashion with pulsatile stockings in place and functional, warming in place, no antibiotics were indicated. Her bladder was drained with in and out catheter. A single-tooth tenaculum was placed on the anterior lip of the cervix and the uterus dilated to #8 Hegar dilator. The hysteroscope was placed into the uterus with a sorbitol solution running and under constant suction. The resecting loop set at 80 W of cutting was used to resect the fibroid/polyps down to the level of the endometrium. A endometrial curettage was performed. The resected masses and the endometrial curettage was sent to pathology. A 3 mm punch biopsy was performed from the midline perineal body. Biopsy sent to pathology. The patient went to recovery room in good condition counts of instruments and sponges were correct. Estimated blood loss less than 5 mL. The sorbitol solution I=O approximately 2000 mL. Complications: none Post-operative Condition: stable Disposition: same day surgery Plan for aftercare: Home when awake and stable. Treatment and follow-up based on biopsy results.
[2022-11-01 11:55] VITALS: BP 117/70; PULSE 60; RESP 12; O2SAT 98
[2022-11-01 11:59] VITALS: BP 126/68; PULSE 50; RESP 14; O2SAT 99
[2022-11-01] MEDS: OXYCODONE IR 5 MG TABLET PO (12:07)
[2022-11-01 12:15] VITALS: BP 140/71; PULSE 50; RESP 14; O2SAT 100
[2022-11-01 12:30] VITALS: BP 134/85; PULSE 50; RESP 14; TEMP 36.6; O2SAT 99
== END 2022-11-01 12:37 | disposition home or self-care (01) ==
PROVIDERS: PCP Internal Medicine; Referring Provider Specialist; Visit Provider Specialist
PROC: 0UDB8ZZ Extraction of Endometrium, Via Natural or Artificial Opening Endoscopic (ICD-10-PCS; CPT 58558; principal; 2022-11-01 10:45)
DX: N95.0 Postmenopausal bleeding (principal); N90.89 Other specified noninflammatory disorders of vulva and perineum; L90.0 Lichen sclerosus et atrophicus
CPT/HCPCS: 58558; 56605; J1100; J1885; J2405; J2704; J3010

== ENCOUNTER → 2023-06-06 13:52 | Outpatient (CLI) | payer MEDICARE, OTHER, SELFPAY ==
--- NOTE | 2023-06-06 | DI.MG.S_ITS ---
BILATERAL DIGITAL SCREENING MAMMOGRAM 3D/2D WITH CAD: 06/06/2023 CLINICAL: Routine screening. Comparison is made to exams dated: 06/04/2022 mammogram, 04/21/2020 mammogram, and 11/18/2018 mammogram - [facility]. There are scattered areas of fibroglandular density in both breasts (category b / 25%-50% glandular tissue). Current study was also evaluated with a Computer Aided Detection (CAD) system. No significant masses, calcifications, or other findings are seen in either breast. There has been no significant interval change. IMPRESSION: NEGATIVE There is no mammographic evidence of malignancy. A 1 year screening mammogram is recommended. Based on the Tyrer Cuzick model (a risk assessment model) the patient's lifetime risk is 3.3% and her 10 year risk is 2.7%. According to the ACR, ACS, and NCCN guidelines, an annual breast MRI exam along with mammogram is recommended if the patient's lifetime risk is 20% or greater. This exam was interpreted at Station ID: [id number]. NOTE: For mammograms, a report in lay terms will be sent to the patient. Approximately 15% of breast malignancies will not be visualized mammographically. In the management of a palpable breast mass, a negative mammogram must not discourage biopsy of a clinically suspicious lesion. Electronically Signed By: Sushma mosquera/fartun:06/06/2023 16:35:59 letter sent: Normal Exam ACR BI-RADS Category 1: Negative [id number]
== END ==
PROVIDERS: PCP Internal Medicine; Referring Provider Internal Medicine; Visit Provider Internal Medicine
DX: Z12.31 Encounter for screening mammogram for malignant neoplasm of breast (principal); R92.323 Mammographic fibroglandular density, bilateral breasts
CPT/HCPCS: 77063; 77067

== ENCOUNTER → 2023-06-19 08:16 | Outpatient (CLI) | payer MEDICARE, OTHER, SELFPAY ==
[2023-06-19 08:35] LABS: Hematocrit 39.7 % (36-46); Hemoglobin 13.2 g/dL (12.0-16.0); Mean Corpuscular HGB Conc 33.3 % (30-36); Mean Corpuscular Hemoglobin 30.7 PG (26-34); Mean Corpuscular Volume 92.3 fL (80-100); Platelet Count 178 X10^3/uL (150-400); Red Cell Distribution Width 13.1 % (11.6-14.8); White Blood Cell Count 3.4 X10^3/uL (4.5-11.0)
[2023-06-19 08:56] LABS: Erythrocyte Sedimentation Rate 6 MM/HR (0-20)
[2023-06-19 09:13] LABS: Alanine Aminotransferase 31 IU/L (<35); Albumin 4.1 g/dL (3.5-5.0); Albumin Globulin Ratio 1.3 (1.0-2.8); Alkaline Phosphatase 65 U/L (38-126); Aspartate Aminotransferase 32 IU/L (14-36); BUN Creatinine Ratio 24.4 (6-22); Bilirubin Total 1.5 mg/dL (0.2-1.3); Blood Urea Nitrogen 20 mg/dL (7-17); C-Reactive Protein Quant < 0.5 mg/dL (<1.0); Calcium 9.4 mg/dL (8.4-10.2); Carbon Dioxide 31 mmol/L (22-32); Chloride 106 mmol/L (98-107); Cholesterol 161 mg/dL (140-199); Estimated Glomerular Filt Rate > 60 mL/min (>60); Globulin 3.2 g/dL (1.7-4.1); Glucose 91 mg/dL (80-110); HDL Cholesterol 94 mg/dL (40-60); HEMOLYSIS < 15 (0-50); LDL Cholesterol Calculated 50 mg/dL (<100); Potassium 4.6 mmol/L (3.4-5.1); Sodium 141 mmol/L (137-145); Total Protein 7.3 g/dL (6.3-8.2); Triglycerides 83 mg/dL (35-150)
[2023-06-19 09:42] LABS: TSH w/ Reflex to FT4 1.69 uIU/mL (0.47-4.68)
== END ==
PROVIDERS: PCP Internal Medicine; Referring Provider Internal Medicine; Visit Provider Internal Medicine
DX: M06.9 Rheumatoid arthritis, unspecified (principal); E78.2 Mixed hyperlipidemia; N95.0 Postmenopausal bleeding
CPT/HCPCS: 36415; 80053; 80061; 84443; 85027; 85651; 86140

== ENCOUNTER 2023-06-23 15:11 | Emergency (ER) | payer MEDICARE, OTHER, SELFPAY ==
[2023-06-23] VITALS (7 sets, daily range): BP systolic 143–177; BP diastolic 72–78; PULSE 49–65; RESP 12–16; TEMP 36.6; O2SAT 97–99; BMI 23.5
--- NOTE | 2023-06-23 16:04 | DI.RAD.S_ITS ---
PROCEDURE: XR CHEST 1V INDICATIONS: chest pain TECHNIQUE: One view of the chest was acquired. COMPARISON: [facility], CR, XR CHEST 1V, 03/17/2020, 10:55. FINDINGS: Surgical changes and devices: None. Lungs and pleura: Lungs are clear. No pleural effusions or pneumothorax. Mediastinum: Mediastinal contours appear normal. Heart size is normal. Bones and chest wall: No suspicious bony lesions. Overlying soft tissues appear unremarkable. IMPRESSION: No acute cardiopulmonary abnormality is seen. Dictated by: Sushma Centeno M.D. on 06/23/2023 at 16:42 Approved by: Sushma Centeno M.D. on 06/23/2023 at 16:42
[2023-06-23 16:38] LABS: Add Manual Diff / Slide Review NO; Basophils Absolute Auto 0 /uL (0-100); Basophils Percent Auto 0.9 % (0-2); Eosinophils Absolute Auto 200 /uL (0-450); Eosinophils Percent Auto 4.7 % (2-4); Hematocrit 39.4 % (36-46); Hemoglobin 13.3 g/dL (12.0-16.0); Lymphocytes Absolute Auto 1900 /uL (1100-4500); Lymphocytes Percent Auto 40.5 % (25-40); Mean Corpuscular HGB Conc 33.8 % (30-36); Mean Corpuscular Hemoglobin 31.2 PG (26-34); Mean Corpuscular Volume 92.6 fL (80-100); Monocytes Absolute Auto 300 /uL (0-900); Monocytes Percent Auto 6.9 % (3-14); Neutrophils Absolute Auto 2200 /uL (1500-7000); Platelet Count 175 X10^3/uL (150-400); Red Blood Cell Count 4.26 X10^6/uL (4.0-5.2); Red Cell Distribution Width 13.1 % (11.6-14.8); White Blood Cell Count 4.6 X10^3/uL (4.5-11.0)
[2023-06-23 16:56] LABS: Prothrombin Time 10.9 SECONDS (9.4-12.5)
[2023-06-23 16:58] LABS: PTT Partial Thromboplastin Tim 35 SECONDS (25.1-36.5)
[2023-06-23 17:00] LABS: Alanine Aminotransferase 40 IU/L (<35); Albumin 4.4 g/dL (3.5-5.0); Albumin Globulin Ratio 1.4 (1.0-2.8); Alkaline Phosphatase 72 U/L (38-126); Aspartate Aminotransferase 35 IU/L (14-36); BUN Creatinine Ratio 27.6 (6-22); Bilirubin Total 1.4 mg/dL (0.2-1.3); Blood Urea Nitrogen 24 mg/dL (7-17); Calcium 9.4 mg/dL (8.4-10.2); Carbon Dioxide 30 mmol/L (22-32); Chloride 106 mmol/L (98-107); Creatine Kinase 52 U/L (30-135); Estimated Glomerular Filt Rate > 60 mL/min (>60); Globulin 3.2 g/dL (1.7-4.1); Glucose 104 mg/dL (80-110); HEMOLYSIS < 15 (0-50); Lipase 68 U/L (23-300); Magnesium 2.3 mg/dL (1.6-2.3); Potassium 3.8 mmol/L (3.4-5.1); Sodium 138 mmol/L (137-145); Total Protein 7.6 g/dL (6.3-8.2)
[2023-06-23 17:12] LABS: Troponin I < 0.012 ng/mL (0.01-0.034)
[2023-06-23 18:46] LABS: Creatine Kinase 53 U/L (30-135)
[2023-06-23 18:58] LABS: Troponin I < 0.012 ng/mL (0.01-0.034)
--- NOTE | 2023-06-23 20:03 | ED_ITS ---
HPI - Chest Pain General Chief Complaint: Chest Pain Stated Complaint: tight chest/Pre-syncope T-0/ headach Time Seen by Provider: 06/23/23 18:08 Source: patient Mode of arrival: Ambulatory Limitations: no limitations History of Present Illness HPI narrative: Patient is a 73-year-old female. Relatively healthy however does have history of lupus. Also states she has had a history of an abnormal heart rhythm in the past. She was at her normal state of health. Was driving in her car when she had a sudden onset of tightness in her chest that she states when up into her neck and then into her head. She felt like she was going to pass out. Symptoms lasted seconds and then have all but resolved. No shortness of breath. Did not necessarily feel palpitations at the time. No nausea or vomiting. No numbness and tingling in her upper and lower extremities. 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 She states she was not going to come into the emergency department because her symptoms have resolved however she states her primary doctor wanted her to come in to be evaluated. Related Data Home Medications Medication Instructions Recorded Confirmed valacyclovir 1 gram tablet 1,000 mg PO DAILY PRN shingles 05/27/22 06/18/23 breakout clobetasol 0.05 % topical ointment 1 applic topical DAILY PRN Lichen 06/18/23 06/18/23 sclerosis estradiol 0.01% (0.1 mg/gram) 1 g vaginal Q OTHER DAY 06/18/23 06/18/23 vaginal cream hydroxychloroquine 200 mg tablet 400 mg PO DAILY 06/18/23 06/18/23 hyoscyamine 0.15 mg tablet 0.15 mg PO DAILY PRN 06/18/23 06/18/23 rosuvastatin 10 mg tablet 10 mg PO ONCE PM 06/18/23 06/18/23 triamcinolone acetonide 0.1 % 1 applic topical DAILY PRN 06/18/23 06/18/23 topical cream Previous Rx's Medication Instructions Recorded hydrocodone 5 mg-acetaminophen 325 1 tab PO BID PRN pain #30 tabs 06/18/23 mg tablet prednisolone 5 mg tablet 5 mg PO DAILY #30 tabs 06/18/23 zolpidem 5 mg tablet 5 mg PO BEDTIME PRN sleep #4 tabs 06/18/23 Allergies Allergy/AdvReac Type Severity Reaction Status Date / Time No Known Drug Allergies Allergy Verified 06/18/23 07:38 Review of Systems Review of Systems ROS Unobtainable: All systems reviewed & are unremarkable except as noted in HPI and below Patient History Medical History Mixed hyperlipidemia Psoriasis History of colonic polyps Chronic insomnia SVT (supraventricular tachycardia) Allergic rhinitis Ocular migraine Polyneuropathy, unspecified Rosacea Eczema Alopecia Rheumatoid arthritis Lupus Chronic back pain Rubella Positive PPD Mumps Hepatitis B Chicken pox Anemia (~1973) Vertigo Tinnitus Hearing loss Ovarian cyst (~1997) Herpes (~1969) Hemorrhoid Diverticular disease (~1994) Surgical History Anesthesia Status post fusion of wrist (~2010) History of bowel resection (~2008) Hx of removal of ovary Family History Mother History of heart disease Hyperlipidemia Hypertension Stroke Sister Mental health problem Sister Pneumonitis Family/Other WPW (Pjxwv-Vpyvgimyj-Qdpqe syndrome) Crohn's disease Autoimmune sclerosing pancreatitis Diabetes mellitus Social History household members: spouse Smoking Status: Former smoker alcohol intake: current Smoking Status: Former smoker alcohol intake frequency: 0-2 drinks per day Alcohol type: wine Substance Use Type: does not use Exam Initial Vital Signs Initial Vital Signs: Vital Signs Temperature 98 F 06/23/23 15:59 Pulse Rate 65 06/23/23 15:59 Respiratory Rate 16 06/23/23 15:59 Blood Pressure 143/72 H 06/23/23 15:59 Pulse Oximetry 98 06/23/23 15:59 Oxygen Delivery Method Room Air 06/23/23 15:59 Const General: cooperative, comfortable and No ill appearing HENMT Head: normal to inspection and normocephalic Resp Effort & Inspection: normal respiratory effort Auscultation: clear to auscultation bilaterally Cardio Rate: regular rate Rhythm: regular rhythm Pulses: radial pulses present bilaterally GI Inspection: normal to inspection and non-distended Skin General: no rashes or lesions noted Neuro General: patient alert, patient awake, patient oriented x3 and moves all extremities Cognition: normal cognition Speech: speech normal Extrem General: normal to inspection and capillary refill normal Course Orders Ordered: ED Orders 06/23/23 18:20 Troponin & CK Cardiac Panel Stat Vital Signs Vital signs: Vital Signs - 8 hr 06/23/23 19:14 06/23/23 19:15 06/23/23 19:30 Pulse Rate 53 L 49 L Respiratory Rate 12 12 Blood Pressure 177/77 H Pulse Oximetry 98 98 Oxygen Delivery Method Room Air 06/23/23 19:30 06/23/23 19:57 06/23/23 19:57 Pulse Rate 57 L Respiratory Rate Blood Pressure 159/72 H 173/78 H Pulse Oximetry 99 Oxygen Delivery Method 06/23/23 19:59 06/23/23 19:59 06/23/23 20:00 Pulse Rate 52 L 52 L Respiratory Rate Blood Pressure 163/72 H Pulse Oximetry 97 98 Oxygen Delivery Method MDM - Chest Pain Lab Data Attestation: I reviewed the patient's lab results. 06/23/23 16:15 06/23/23 16:15 Labs: Lab Results 06/23/23 06/23/23 Range/Units 16:15 18:20 WBC 4.6 (4.5-11.0) X10^3/uL RBC 4.26 (4.0-5.2) X10^6/uL Hgb 13.3 (12.0-16.0) g/dL Hct 39.4 (36-46) % MCV 92.6 (80-100) fL MCH 31.2 (26-34) PG MCHC 33.8 (30-36) % RDW 13.1 (11.6-14.8) % Plt Count 175 (150-400) X10^3/uL Neut % (Auto) 47.0 L (50-75) % Lymph % (Auto) 40.5 H (25-40) % [place] % (Auto) 6.9 (3-14) % Eos % (Auto) 4.7 H (2-4) % Baso % (Auto) 0.9 (0-2) % Neut # (Auto) 2200 (9440-7804) /uL Lymph # (Auto) 1900 (9260-3865) /uL [place] # (Auto) 300 (0-900) /uL Eos # (Auto) 200 (0-450) /uL Baso # (Auto) 0 (0-100) /uL PT 10.9 (9.4-12.5) SECONDS INR 1.0 (0.9-1.3) APTT 35 (25.1-36.5) SECONDS Sodium 138 (137-145) mmol/L Potassium 3.8 (3.4-5.1) mmol/L Chloride 106 (98-107) mmol/L Carbon Dioxide 30 (22-32) mmol/L BUN 24 H (7-17) mg/dL Creatinine 0.87 (0.52-1.04) mg/dL Estimated GFR > 60 (>60) mL/min BUN/Creatinine Ratio 27.6 H (6-22) Glucose 104 (80-110) mg/dL Calcium 9.4 (8.4-10.2) mg/dL Magnesium 2.3 (1.6-2.3) mg/dL Total Bilirubin 1.4 H (0.2-1.3) mg/dL AST 35 (14-36) IU/L ALT 40 H (<35) IU/L Alkaline Phosphatase 72 (38-126) U/L Total Creatine Kinase 52 53 (30-135) U/L Troponin I < 0.012 < 0.012 (0.01-0.034) ng/mL Total Protein 7.6 (6.3-8.2) g/dL Albumin 4.4 (3.5-5.0) g/dL Globulin 3.2 (1.7-4.1) g/dL Albumin/Globulin Ratio 1.4 (1.0-2.8) Lipase 68 (23-300) U/L Imaging Data Chest x-ray: Radiologist's Impression: PROCEDURE: XR CHEST 1V INDICATIONS: chest pain TECHNIQUE: One view of the chest was acquired. COMPARISON: [facility], , XR CHEST 1V, 03/17/2020, 10:55. FINDINGS: Surgical changes and devices: None. Lungs and pleura: Lungs are clear. No pleural effusions or pneumothorax. Mediastinum: Mediastinal contours appear normal. Heart size is normal. Bones and chest wall: No suspicious bony lesions. Overlying soft tissues appear unremarkable. IMPRESSION: No acute cardiopulmonary abnormality is seen. ECG Data Attestation: I personally reviewed and interpreted this ECG as follows: Interpretation: Sinus bradycardia Ventricular rate of 56 Normal axis Normal QRS Normal QTC No ST T wave changes MDM Narrative Medical decision making narrative: Patient is now asymptomatic. Sinus rhythm on her EKG. Chest x-ray is unremarkable. Pulses equal bilateral. Blood pressure in the left arm 173/78, pressure in the right arm 163/72. Had a discussion with her regarding concerns about aortic issues such as dissection or aneurysm given the sudden nature of the symptoms and what she describes however I feel this is very unlikely given the fact that her symptoms were very transient and she is now essentially asymptomatic and has an unremarkable x-ray, EKG, labs, pulses, blood pressures. We discussed potentially doing CT scan tonight versus discharge home and followed up with primary provider. After this discussion we opted to hold on a CT scan for now. Will discharge home with strict return precautions and follow- up instructions. She expressed understanding and agreement. Discharge Plan Departure Patient Disposition: Home Clinical Impression: Atypical chest pain Instructions: DI for Atypical Chest Pain Activity Restrictions/Additional Instructions: I do recommend that you continue to take any medications as directed. Contact your primary care doctor for a follow-up. Return to the emergency department for new or worsening symptoms like we discussed. Prescriptions: No Action hydrocodone-acetaminophen 5-325 mg tablet 1 tab PO BID PRN (Reason: pain) Qty: 30 0RF valacyclovir 1 gram tablet 1,000 mg PO DAILY PRN (Reason: shingles breakout) hydroxychloroquine 200 mg tablet 400 mg PO DAILY hyoscyamine 0.15 mg tablet 0.15 mg PO DAILY PRN rosuvastatin 10 mg tablet 10 mg PO ONCE PM estradiol 0.01 % (0.1 mg/gram) cream 1 g vaginal Q OTHER DAY Rx Instructions: use pea sized amount to external vagina triamcinolone acetonide 0.1 % cream 1 applic topical DAILY PRN clobetasol 0.05 % ointment 1 applic topical DAILY PRN (Reason: Lichen sclerosis) Rx Instructions: Apply to affected area of vulva and perirectal daily for 1 month, twice weekly for 1 month, then once weekly long-term prednisolone 5 mg tablet 5 mg PO DAILY Qty: 30 1RF zolpidem 5 mg tablet 5 mg PO BEDTIME PRN (Reason: sleep) Qty: 4 1RF Referrals: Damon Alvarenga MD [Primary Care Provider] - Stand Alone Forms: Patient Portal/API
== END 2023-06-23 20:18 | disposition home or self-care (01) ==
PROVIDERS: Emergency Medicine; Emergency Provider Emergency Medicine; PCP Internal Medicine
DX: R07.89 Other chest pain (principal); R00.1 Bradycardia, unspecified
CPT/HCPCS: 36415; 71045; 80053; 82550; 83690; 83735; 84484; 85025; 85610; 85730; 93005; 93010; 99284

== ENCOUNTER → 2023-09-23 06:59 | Outpatient (CLI) | payer MEDICARE, OTHER, SELFPAY ==
[2023-09-23 08:05] LABS: Hematocrit 38.4 % (36-46); Hemoglobin 12.8 g/dL (12.0-16.0); Mean Corpuscular HGB Conc 33.3 % (30-36); Mean Corpuscular Hemoglobin 30.9 PG (26-34); Mean Corpuscular Volume 92.7 fL (80-100); Platelet Count 191 X10^3/uL (150-400); Red Blood Cell Count 4.14 X10^6/uL (4.0-5.2); Red Cell Distribution Width 13.7 % (11.6-14.8); White Blood Cell Count 3.8 X10^3/uL (4.5-11.0)
[2023-09-23 08:32] LABS: Alanine Aminotransferase 35 IU/L (<35); Albumin 3.9 g/dL (3.5-5.0); Albumin Globulin Ratio 1.3 (1.0-2.8); Alkaline Phosphatase 95 U/L (38-126); Aspartate Aminotransferase 40 IU/L (14-36); BUN Creatinine Ratio 24.7 (6-22); Bilirubin Direct 0.3 mg/dL (0.0-0.4); Bilirubin Total 1.6 mg/dL (0.2-1.3); Blood Urea Nitrogen 21 mg/dL (7-17); C-Reactive Protein Quant < 0.5 mg/dL (<1.0); Calcium 8.7 mg/dL (8.4-10.2); Carbon Dioxide 27 mmol/L (22-32); Chloride 108 mmol/L (98-107); Estimated Glomerular Filt Rate > 60 mL/min (>60); Glucose 101 mg/dL (80-110); HEMOLYSIS < 15 (0-50); Potassium 4.4 mmol/L (3.4-5.1); Sodium 138 mmol/L (137-145); Total Protein 6.9 g/dL (6.3-8.2)
[2023-09-24 02:02] LABS: Clostridium Difficile Tox PCR Negative for C. diff (Negative)
[2023-09-28 15:09] LABS: Calprotectin, Stool 180 ug/g (0-120)
[2023-09-28 23:35] LABS: Pancreatic Elastase, Fecal 756 (>200)
== END ==
PROVIDERS: PCP Internal Medicine; Referring Provider Internal Medicine Gastroenterology; Visit Provider Internal Medicine Gastroenterology
DX: R19.7 Diarrhea, unspecified (principal)
CPT/HCPCS: 36415; 80053; 82248; 82656; 83993; 85027; 86140; 87045; 87493

== ENCOUNTER → 2023-10-22 09:30 | Outpatient (CLI) | payer MEDICARE, OTHER, SELFPAY ==
[2023-10-23 14:40] LABS: Candida species Negative (Negative); Gardnerella vaginalis Negative (Negative); Trichomoas vaginalis Negative (Negative)
== END ==
PROVIDERS: PCP Internal Medicine; Visit Provider Obstetrics & Gynecology
DX: N89.8 Other specified noninflammatory disorders of vagina (principal)
CPT/HCPCS: 87480; 87510; 87660

== ENCOUNTER → 2023-11-04 09:09 | Outpatient (CLI) | payer MEDICARE, OTHER, SELFPAY | PROVIDERS: PCP Internal Medicine; Referring Provider Physician Assistant Surgical; Visit Provider Physician Assistant Surgical | DX: R30.0 Dysuria (principal) | CPT/HCPCS: 87077; 87086 ==

== ENCOUNTER → 2024-02-05 08:04 | Outpatient (CLI) | payer MEDICARE, OTHER, SELFPAY | LOC: CAR 08:05 | PROVIDERS: PCP Internal Medicine; Referring Provider Internal Medicine; Visit Provider Internal Medicine | DX: R00.0 Tachycardia, unspecified (principal) | CPT/HCPCS: 93242 ==

== ENCOUNTER → 2024-04-27 08:56 | Outpatient (CLI) | payer MEDICARE, OTHER, SELFPAY ==
--- NOTE | 2024-04-27 08:58 | DI.RAD.S_ITS ---
PROCEDURE: XR HIP W PEL IF DONE RT 2V INDICATIONS: right hip pain, gait abnormality TECHNIQUE: 2 views of the hip were acquired. COMPARISON: None. FINDINGS: Bones: No fractures or dislocations. Moderate degenerative change is noted bilaterally within the hip joints marked by bilateral marginal osteophytosis and acetabular subchondral sclerosis. There is mild joint space loss, left greater than right. No suspicious bony lesions. The visualized pelvic ring appears intact. Soft tissues: No suspicious soft tissue calcifications or masses. IMPRESSION: Degenerative change without evidence of acute osseous abnormality. Dictated by: Gerald Lunsford M.D. on 04/27/2024 at 14:56 Approved by: Gerald Lunsford M.D. on 04/27/2024 at 14:58
== END ==
PROVIDERS: PCP Internal Medicine; Referring Provider Internal Medicine; Visit Provider Internal Medicine
DX: M25.551 Pain in right hip (principal)
CPT/HCPCS: 73502

== ENCOUNTER 2024-06-25 07:11 | Emergency (ER) | payer MEDICARE, OTHER, SELFPAY ==
[2024-06-25 07:25] VITALS: BP 146/70; PULSE 88; RESP 18; TEMP 37.1; O2SAT 99; BMI 23.3
--- NOTE | 2024-06-25 07:48 | ED.LOWEXIN ---
HPI - Extremity Injury (Lower) General Chief Complaint: Extremity Injury, Lower Stated Complaint: Bilateral knee pain Time Seen by Provider: 06/25/24 07:47 Source: patient Mode of arrival: EMS History of Present Illness HPI Narrative: Patient is a 74-year-old female history of lupus arthritis presenting to day with significant left knee pain. She reports she was scheduled to have her right knee replaced in a couple of months. But she feels like she was having bilateral leg aching she has some back pain. No change in bowel or bladder habits. She denies any sciatic symptoms. She has been taking hydrochloroquine for lupus. She took an [place] from 2017 last night to help her sleep for her left knee pain. Has previously been injected but not recently it is not red no fever. Related Data Home Medications Medication Instructions Recorded Confirmed valacyclovir 1 gram tablet 1,000 mg PO DAILY PRN shingles 05/27/22 05/26/24 breakout hydroxychloroquine 200 mg tablet 400 mg PO DAILY 06/18/23 05/26/24 hyoscyamine 0.15 mg tablet 0.15 mg PO DAILY PRN 06/18/23 05/26/24 triamcinolone acetonide 0.1 % 1 applic topical DAILY PRN 06/18/23 05/26/24 topical cream budesonide 3 mg 9 mg PO DAILY 12/26/23 05/26/24 capsule,delayed,extended release Previous Rx's Medication Instructions Recorded estradiol 0.01% (0.1 mg/gram) 0.5 g vaginal 2XW #42.5 grams 10/22/23 vaginal cream rosuvastatin 10 mg tablet 10 mg PO ONCE PM #90 tabs 11/24/23 trazodone 50 mg tablet 50 mg PO BEDTIME PRN insomnia #60 05/27/24 tabs hydrocodone 5 mg-acetaminophen 325 1 tab PO Q6H PRN pain #10 tabs 06/25/24 mg tablet prednisone 20 mg tablet 40 mg (2 x 20 mg) PO DAILY #10 tabs 06/25/24 Allergies Allergy/AdvReac Type Severity Reaction Status Date / Time No Known Drug Allergies Allergy Verified 05/26/24 13:30 Patient History Medical History Bilateral primary osteoarthritis of knee Chronic right sacroiliac joint pain Collagenous colitis Mixed hyperlipidemia Psoriasis History of colonic polyps Chronic insomnia SVT (supraventricular tachycardia) Allergic rhinitis Ocular migraine Polyneuropathy, unspecified Rosacea Eczema Alopecia Rheumatoid arthritis Lupus Chronic back pain Rubella Positive PPD Mumps Hepatitis B Chicken pox Anemia (~1973) Vertigo Tinnitus Hearing loss Ovarian cyst (~1997) Herpes (~1969) Hemorrhoid Diverticular disease (~1994) Surgical History Anesthesia Status post fusion of wrist (~2010) History of bowel resection (~2008) Hx of removal of ovary Family History Mother History of heart disease Hyperlipidemia Hypertension Stroke Sister Mental health problem Sister Pneumonitis Family/Other WPW (Sfflg-Vvqlyeqyr-Xjtpx syndrome) Crohn's disease Autoimmune sclerosing pancreatitis Diabetes mellitus Social History household members: spouse Smoking Status: Former smoker alcohol intake: current Smoking Status: Former smoker alcohol intake frequency: 0-2 drinks per day Alcohol type: wine Exam Initial Vital Signs Initial Vital Signs: Vital Signs Temperature 98.8 F 06/25/24 07:25 Pulse Rate 88 06/25/24 07:25 Respiratory Rate 18 06/25/24 07:25 Blood Pressure 146/70 H 06/25/24 07:25 Pulse Oximetry 99 06/25/24 07:25 Oxygen Delivery Method Room Air 06/25/24 07:25 GENERAL: Well-appearing, well-nourished and in no acute distress. CARDIOVASCULAR: peripheral pulses in tact, cap refill <2 sec RESPIRATORY: No respiratory distress, speaks in full sentences without difficulty BACK: Left paraspinal tenderness pinpoint no midline tenderness EXTREMITIES: Normal range of motion, no clubbing or edema. Neurovascularly intact Left knee is swollen non erythematous able to fully extend arthritic Right knee not swollen full range of motion nontender NEUROLOGICAL: Cranial nerves II through XII grossly intact. Normal gait and speech. SKIN: Warm, dry, no petechiae, no rashes or lesions. Course Orders Ordered: ED Orders 06/25/24 07:56 XR lumbar spine 2-3V Stat Discontinued Medications Ketorolac Tromethamine (Ketorolac 30 Mg/Ml Vial) 30 mg IM NOW ONE Stop: 06/25/24 07:57 Last Admin: 06/25/24 08:31 Dose: 30 mg Documented By: CTS Vital Signs Vital signs: Vital Signs - 8 hr 06/25/24 07:25 Temperature 98.8 F Pulse Rate 88 Respiratory Rate 18 Blood Pressure 146/70 H Pulse Oximetry 99 Oxygen Delivery Method Room Air MDM - Extremity Injury (Lower) Imaging Data Extremity x-ray #1: Radiologist's Impression: PROCEDURE: XR LUMBAR SPINE 2-3V INDICATIONS: pain TECHNIQUE: 3 views of the lumbar spine were acquired. COMPARISON: [facility], CR, XR LUMBAR SPINE 2-3V, 12/04/2018, 16:02. FINDINGS: Bones: 5 kyy-gqk-iaaqtah vertebrae are present. Mild grade 1 retrolisthesis of L2 on L3. Likely mild dextroconvex curvature of the upper lumbar spine. No vertebral body compression fractures. No suspicious bony lesions. Multilevel disc space narrowing and degenerative endplate changes. Multilevel facet hypertrophy. Soft tissues: Overlying bowel gas pattern is normal. No suspicious soft tissue calcifications. IMPRESSION: No acute osseous abnormality. Ihqr-ti-wttuauql multilevel spondylosis. Approved by: Cal Busby M.D. on 06/25/2024 at 8:26 [facility] Narrative Medical decision making narrative: Patient is 74-year-old female history of lupus arthritis bilateral osteoarthritis presenting today with significant left knee pain and swelling. No erythema no concern for septic arthritis. She is also having some mild neck pain. X-ray reviewed also show some spondylosis. No concern for cauda equina syndrome or nerve impingement. He was given Toradol here in the ED. Discharge Plan Departure Patient Disposition: Home Clinical Impression: Osteoarthritis Instructions: DI for Osteoarthritis Activity Restrictions/Additional Instructions: *You have been diagnosed with arthritis *What to do: Increase activity as tolerated in the light movement encourage *Continue to take medications as directed [place] 1 tablet every 6 hours or at nighttime if needed for severe Tylenol 500 mg to 1000 mg every 6 hours if needed for ipbc-lf-utvvkhev pain do not exceed more than 4000 mg in 24 hours or 1000 mg at a time Prednisone 40 mg once a day for 5 days *Follow up with your primary care provider in 2-3 days or call [phone] *Return to ER if you should have increasing pain redness swelling or any new, worsening or concerning symptoms CONTROLLED SUBSTANCE DISCHARGE (Narcotoic/benzodiazepine/Flexeril/Phenergan) 1. You have been prescribed narcotic medications, it does have acetaminophen/Tylenol/paracetamol in it, DO NOT TAKE MORE THAN 4,00mg in 24 hours of Tylenol. TRAMADOL DOES NOT CONTAIN TYLENOL 2. Please understand that we cannot provide further refills of narcotics, benzodiazepines or controlled substances through the ED and her pain management will need to be through your provider. 3. While on these medications you cannot drive or operate heavy machinery. 4. You cannot sign legal documents or perform any duties such as this. 5. As long as you're taking opiate pain medications he should also be taking a stool softener such as Colace, Dulcolax, MiraLAX or prune juice, to help avoid constipation. Prescriptions: New hydrocodone-acetaminophen 5-325 mg tablet 1 tab PO Q6H PRN (Reason: pain) Qty: 10 0RF prednisone 20 mg tablet 40 mg PO DAILY Qty: 10 0RF No Action budesonide 3 mg capsule,delayed,extend.release 9 mg PO DAILY rosuvastatin 10 mg tablet 10 mg PO ONCE PM Qty: 90 3RF trazodone 50 mg tablet 50 mg PO BEDTIME PRN (Reason: insomnia) Qty: 60 5RF Rx Instructions: Take 1-2 tabs nightly as needed for sleep valacyclovir 1 gram tablet 1,000 mg PO DAILY PRN (Reason: shingles breakout) hydroxychloroquine 200 mg tablet 400 mg PO DAILY hyoscyamine 0.15 mg tablet 0.15 mg PO DAILY PRN triamcinolone acetonide 0.1 % cream 1 applic topical DAILY PRN estradiol 0.01 % (0.1 mg/gram) cream 0.5 g vaginal 2XW Qty: 42.5 3RF Referrals: Damon Alvarenga MD [Primary Care Provider] - Stand Alone Forms: Patient Portal/API/Survey
--- NOTE | 2024-06-25 07:56 | DI.RAD.S_ITS ---
PROCEDURE: XR LUMBAR SPINE 2-3V INDICATIONS: pain TECHNIQUE: 3 views of the lumbar spine were acquired. COMPARISON: [facility], , XR LUMBAR SPINE 2-3V, 12/04/2018, 16:02. FINDINGS: Bones: 5 [id number] vertebrae are present. Mild grade 1 retrolisthesis of L2 on L3. Likely mild dextroconvex curvature of the upper lumbar spine. No vertebral body compression fractures. No suspicious bony lesions. Multilevel disc space narrowing and degenerative endplate changes. Multilevel facet hypertrophy. Soft tissues: Overlying bowel gas pattern is normal. No suspicious soft tissue calcifications. IMPRESSION: No acute osseous abnormality. Rris-xy-wyvqyrwy multilevel spondylosis. Approved by: Cal Busby M.D. on 06/25/2024 at 8:26
[2024-06-25] MEDS: KETOROLAC 30 MG/ML VIAL IM (08:31)
== END 2024-06-25 08:55 | disposition home or self-care (01) ==
PROVIDERS: Emergency Provider Emergency Medicine; Family Provider Internal Medicine; PCP Internal Medicine
DX: M17.12 Unilateral primary osteoarthritis, left knee (principal); M54.2 Cervicalgia
CPT/HCPCS: 72100; 96372; 99283; 99284; J1885

== ENCOUNTER → 2024-07-06 07:08 | Outpatient (CLI) | payer MEDICARE, OTHER, SELFPAY ==
[2024-07-06 07:50] LABS: Hematocrit 39.4 % (36-46); Hemoglobin 13.2 g/dL (12.0-16.0); Mean Corpuscular HGB Conc 33.4 % (30-36); Mean Corpuscular Volume 92.7 fL (80-100); Platelet Count 217 X10^3/uL (150-400); Red Blood Cell Count 4.25 X10^6/uL (4.0-5.2); Red Cell Distribution Width 13.9 % (11.6-14.8); White Blood Cell Count 4.9 X10^3/uL (4.5-11.0)
[2024-07-06 08:21] LABS: Alanine Aminotransferase 67 IU/L (<35); Albumin 3.9 g/dL (3.5-5.0); Albumin Globulin Ratio 1.4 (1.0-2.8); Alkaline Phosphatase 121 U/L (38-126); Aspartate Aminotransferase 46 IU/L (14-36); BUN Creatinine Ratio 22.5 (6-22); Bilirubin Total 1.1 mg/dL (0.2-1.3); Blood Urea Nitrogen 20 mg/dL (7-17); C-Reactive Protein Quant 2.3 mg/dL (<1.0); Calcium 9.3 mg/dL (8.4-10.2); Carbon Dioxide 29 mmol/L (22-32); Chloride 102 mmol/L (98-107); Cholesterol 156 mg/dL (140-199); Estimated Glomerular Filt Rate > 60 mL/min (>60); Globulin 2.7 g/dL (1.7-4.1); Glucose 104 mg/dL (80-110); HDL Cholesterol 90 mg/dL (40-60); HEMOLYSIS < 15 (0-50); LDL Cholesterol Calculated 52 mg/dL (<100); Potassium 3.8 mmol/L (3.4-5.1); Sodium 136 mmol/L (137-145); Total Protein 6.6 g/dL (6.3-8.2); Triglycerides 70 mg/dL (35-150)
[2024-07-06 08:32] LABS: Erythrocyte Sedimentation Rate 22 MM/HR (0-20)
== END ==
PROVIDERS: Family Provider Internal Medicine; PCP Internal Medicine; Referring Provider Internal Medicine; Visit Provider Internal Medicine
DX: M06.9 Rheumatoid arthritis, unspecified (principal); E78.2 Mixed hyperlipidemia
CPT/HCPCS: 36415; 80053; 80061; 85027; 85651; 86140

== ENCOUNTER → 2024-08-12 15:37 | Outpatient (CLI) | payer MEDICARE, OTHER, SELFPAY ==
[2024-08-12 15:52] LABS: Hematocrit 35.3 % (36-46); Mean Corpuscular HGB Conc 33.9 % (30-36); Mean Corpuscular Hemoglobin 31.3 PG (26-34); Mean Corpuscular Volume 92.2 fL (80-100); Platelet Count 291 X10^3/uL (150-400); Red Blood Cell Count 3.83 X10^6/uL (4.0-5.2); Red Cell Distribution Width 13.3 % (11.6-14.8); White Blood Cell Count 8.8 X10^3/uL (4.5-11.0)
[2024-08-12 16:04] LABS: BUN Creatinine Ratio 32.5 (6-22); Blood Urea Nitrogen 26 mg/dL (7-17); Calcium 9.5 mg/dL (8.4-10.2); Carbon Dioxide 25 mmol/L (22-32); Chloride 103 mmol/L (98-107); Estimated Glomerular Filt Rate > 60 mL/min (>60); Glucose 107 mg/dL (70-99); HEMOLYSIS < 15 (0-50); Potassium 3.7 mmol/L (3.4-5.1); Sodium 138 mmol/L (137-145)
--- NOTE | 2024-08-12 16:30 | EKG_ITS ---
[facility] [address] [place] [address] Test Date: 2024-08-12 Pat Name: Bret Espinoza Department: Room: Gender: Female Administrative Appeals Tribunal Member: : [id number] Requested By: Order Number: [id number] Reading MD: Lobo Sanchez Measurements Intervals [place] Rate: 55 P: 23 MD: 160 QRS: 43 QRSD: 80 T: 46 QT: 428 QTc: 409 Interpretive Statements Sinus bradycardia Electronically Signed On 08-14-2024 16:23:10 PDT by Lobo Sanchez
== END ==
PROVIDERS: Family Provider Internal Medicine; PCP Internal Medicine; Referring Provider Internal Medicine; Visit Provider Internal Medicine
DX: Z01.818 Encounter for other preprocedural examination (principal); M17.0 Bilateral primary osteoarthritis of knee
CPT/HCPCS: 36415; 80048; 85027; 93005

== ENCOUNTER → 2024-08-13 13:42 | Outpatient (CLI) | payer MEDICARE, OTHER, SELFPAY | PROVIDERS: Family Provider Internal Medicine; PCP Internal Medicine; Visit Provider Nurse Practitioner Family | DX: R35.0 Frequency of micturition (principal) | CPT/HCPCS: 87086 ==

== ENCOUNTER → 2024-08-16 14:04 | Outpatient (CLI) | payer MEDICARE, OTHER, SELFPAY ==
--- NOTE | 2024-08-16 14:05 | DI.MG.S_ITS ---
MM screening mammo BI: 08/16/2024. BI-RADS: 1 CLINICAL: 74-year old female for bilateral screening mammogram. Tyrer-Cuzick lifetime risk of 2.1%. No personal or first-degree family history of breast cancer. PRIOR EXAMS 06/06/2023, 06/04/2022, 04/21/2020, 11/18/2018. MAMMOGRAPHY TECHNIQUE: 2D and 3D (tomosynthesis) digital mammographic views obtained, with additional images as needed for full coverage. Current study was also evaluated with a Computer Aided Detection (CAD) system. DENSITY B. There are scattered areas of fibroglandular density. MAMMOGRAPHY FINDINGS Bilateral: No suspicious mass, asymmetry, microcalcification, or other abnormality seen. IMPRESSION: * No evidence of malignancy. RECOMMENDATIONS Bilateral * Annual screening mammography. OVERALL ASSESSMENT CATEGORY BI-RADS-1: Negative. The [employer] recommends annual screening mammography beginning at age 40 for women with average risk of breast cancer. ELECTRONICALLY SIGNED: Dinh oRn M.D. on 08/16/2024 at 03:46:23 PM PT Interpreting Station ID: [id number]
== END ==
PROVIDERS: Family Provider Internal Medicine; PCP Internal Medicine; Referring Provider Internal Medicine; Visit Provider Internal Medicine
DX: Z12.31 Encounter for screening mammogram for malignant neoplasm of breast (principal)
CPT/HCPCS: 77063; 77067

== ENCOUNTER → 2024-10-22 19:47 | Outpatient (CLI) | payer MEDICARE, OTHER, SELFPAY ==
--- NOTE | 2024-10-22 19:49 | DI.MRI.S_ITS ---
PROCEDURE: MR SHOULDER LT WO CON INDICATIONS: Rule out rotator cuff tear TECHNIQUE: Noncontrast oblique coronal T2 fast spin echo with fat saturation, oblique sagittal T1 spin echo and T2 fast spin echo with fat saturation, axial T1 spin echo and T2 fast spin echo with fat saturation through the shoulder. COMPARISON: [facility], RG, XR SHOULDER 3V LEFT, 08/17/2024, 14:53. FINDINGS: Image quality: Excellent. Rotator cuff: Mild T2 signal elevation diffusely throughout the supraspinatus and infraspinatus tendons at the humeral insertion sites extending the musculotendinous junctions, indicating tendinopathy. Superimposed low-grade intrasubstance and bursal surface tearing of the anterior and mid supraspinatus tendon at the humeral insertion site. Subscapularis, infraspinatus, and teres minor tendons are intact. Bones and bursae: No bone marrow contusions or fractures. Moderate glenohumeral and acromioclavicular joint degeneration. The acromion demonstrates conventional anatomy, without an os acromiale. No pathologic subacromial-subdeltoid or subcoracoid bursal fluid is present. Capsule and soft tissues: Diffuse degenerative fraying of the glenoid labrum with superimposed undercutting posteriorly. Biceps tendon is intact. The rotator interval appears normal, without fibrosis. The coracohumeral ligament is normal in thickness. IMPRESSION: 1. Supraspinatus and infraspinatus tendinopathy with superimposed low-grade partial-thickness tearing. 2. Acromioclavicular and glenohumeral joint osteoarthritis. 3. Glenoid labral tearing. Dictated by: Modesta Mast M.D. on 10/25/2024 at 11:44 Approved by: Modesat Mast M.D. on 10/25/2024 at 11:45
== END ==
LOC: MRI 19:48
PROVIDERS: Family Provider Internal Medicine; PCP Internal Medicine; Referring Provider Orthopaedic Surgery; Visit Provider Orthopaedic Surgery
DX: M75.112 Incomplete rotator cuff tear or rupture of left shoulder, not specified as traumatic (principal); M19.012 Primary osteoarthritis, left shoulder; S43.431A Superior glenoid labrum lesion of right shoulder, initial encounter
CPT/HCPCS: 73221

== ENCOUNTER → 2024-12-29 08:08 | Outpatient (CLI) | payer MEDICARE, OTHER, SELFPAY ==
[2024-12-29 08:59] LABS: Add Manual Diff / Slide Review NO; Hematocrit 37.9 % (36-46); Hemoglobin 12.7 g/dL (12.0-16.0); Lymphocytes Absolute Auto 1700 /uL (1100-4500); Mean Corpuscular HGB Conc 33.4 % (30-36); Mean Corpuscular Hemoglobin 31.0 PG (26-34); Mean Corpuscular Volume 92.6 fL (80-100); Platelet Count 211 X10^3/uL (150-400)
[2024-12-29 09:25] LABS: Alanine Aminotransferase 21 IU/L (<35); Albumin 4.4 g/dL (3.5-5.0); Albumin Globulin Ratio 1.6 (1.0-2.8); Alkaline Phosphatase 57 U/L (38-126); Blood Urea Nitrogen 21 mg/dL (7-17); Calcium 9.6 mg/dL (8.4-10.2); Carbon Dioxide 28 mmol/L (22-32); Chloride 103 mmol/L (98-107); Estimated Glomerular Filt Rate > 60 mL/min (>60); Globulin 2.7 g/dL (1.7-4.1); Glucose 90 mg/dL (70-99); HEMOLYSIS < 15 (0-50); Potassium 4.0 mmol/L (3.4-5.1); Sodium 139 mmol/L (137-145); Total Protein 7.1 g/dL (6.3-8.2)
[2024-12-29 09:33] LABS: Protein (Total) Urine Random < 5 mg/dL (0-12); Protein Creatinine Ratio Urine 0.03 GRAM/24H
[2024-12-29 20:20] LABS: Appearance Urine UA CLEAR; Bilirubin Urine UA NEGATIVE (NEGATIVE); Color Urine UA YELLOW; Glucose Urine UA NEGATIVE (Negative); Ketones Urine UA TRACE (NEGATIVE); Leukocyte Esterase Urine UA 1+ (NEGATIVE); Nitrite Urine UA NEGATIVE (Negative); Occult Blood Urine UA NEGATIVE (Negative); Protein Urine UA NEGATIVE (Negative); Specific Gravity Urine UA >=1.030 (1.000-1.035); Urobilinogen Urine UA 0.2 E.U./dL (0.2); pH Urine UA 5.5 (4.5-8.0)
[2024-12-29 20:26] LABS: Culture Indicated Urine Specimen Cultured
== END ==
PROVIDERS: Family Provider Internal Medicine; PCP Internal Medicine; Referring Provider Internal Medicine; Visit Provider Internal Medicine Rheumatology
DX: M35.1 Other overlap syndromes (principal); Z79.899 Other long term (current) drug therapy
CPT/HCPCS: 36415; 80053; 81001; 82570; 84156; 85025; 85651; 86140; 86160; 86162; 87086

== ENCOUNTER → 2025-02-03 15:04 | Outpatient (CLI) | payer MEDICARE, OTHER, SELFPAY ==
--- NOTE | 2025-02-03 15:05 | DI.US.S_ITS ---
PROCEDURE: US PELVIC COMPLETE INDICATIONS: PMB TECHNIQUE: Real-time scanning was performed of the pelvic organs, with image documentation. Additional endovaginal scanning was necessary due to incomplete visualization of the adnexal and endometrial structures by transabdominal scanning. COMPARISON: [facility], US, US PELVIC COMPLETE, 10/22/2023, 9:26. FINDINGS: Uterus: Uterus is anteverted and normal in size at 7.2 x 2.8 x 5.5 cm. The myometrium is homogeneous. The endometrium measures 5.5 mm combined thickness. Minimal fluid within the central canal. Ovaries: Right ovary is surgically absent. Left ovary is not seen. Prominent adnexal vessels, greater on the left. Other: No pathologic free abdominal or pelvic fluid. IMPRESSION: Endometrium is mildly thickened measuring 5.5 mm. Further evaluation with endometrial sampling is recommended. Trace fluid is seen within the endometrium. Right ovary is surgically absent. Left ovary is not seen. Prominent adnexal vessels, greater on the left. This is nonspecific and can be seen with pelvic congestion syndrome, recommend clinical correlation. We strive to produce accurate, complete, and clear reports of imaging services. To assist us in improving patient care, this report was composed using standard report templates and voice recognition software. Therefore, it may contain abnormal punctuation, insertions and/or omissions. Occasional wrong-word or sound-alike substitutions may occur. Though we review the report and make efforts to correct it, we do recommend that the report be read carefully in proper context to recognize any text inaccuracies. Dictated by: Juan Clemente M.D. on 02/04/2025 at 11:22 Approved by: Juan Clemente M.D. on 02/04/2025 at 11:35
== END ==
LOC: US 15:05
PROVIDERS: Family Provider Internal Medicine; PCP Internal Medicine; Referring Provider Obstetrics & Gynecology; Visit Provider Obstetrics & Gynecology
DX: N95.0 Postmenopausal bleeding (principal); Z90.721 Acquired absence of ovaries, unilateral
CPT/HCPCS: 76830; 76856